=== PATIENT | female | born 1975 | race Caucasian/White ===

== ENCOUNTER 2020-10-02 13:49 | Emergency (ER) | payer OTHER, SELFPAY ==
[2020-10-02 13:50] VITALS: BP 117/92; PULSE 83; RESP 20; TEMP 36.8; O2SAT 99; BMI 29.1
--- NOTE | 2020-10-02 13:53 | HMH.EDGENADL ---
ED Disposition Clinical Impression: Tobacco use disorder, Hemoptysis Pneumonia Qualifiers: Pneumonia type: due to unspecified organism Laterality: right Lung location: middle lobe of lung Qualified Code(s): J18.9 - Pneumonia, unspecified organism Disposition: Home, Self-Care Condition on Discharge: Fair Instructions: DI for Pneumonia -- Adult Prescriptions: Amoxicillin/Potassium Clav [Augmentin 875-125 Tablet] 1 tab PO Q12H 7 Days #14 tab Transmission Status: Pending to [facility]/pharmacy #[id number] predniSONE [Prednisone 20mg Tab] 40 mg PO DAILY 5 Days #10 tab Transmission Status: Pending to [facility]/pharmacy #[id number] Azithromycin [Z-Yoav 250mg Tab] 250 mg PO DIRECTED #6 tab Transmission Status: Pending to [email or web address]/pharmacy #[id number] Referrals: Katty Carroll [Primary Care Provider] - Time of Disposition: 17:04 - Critical Care Critical Care Time: No Attestation: On , the high probability of a clinically significant, sudden or life threatening deterioration of the following system(s) required my full and direct attention, intervention and personal management. The time I documented below is in addition to time spent performing reported procedures but includes the following listed in this critical care notation. Medical Decision Making - Medical Records Medical records reviewed: Yes: I reviewed the patient's medical records. - Jeromy Inquiry Pt receiving controlled substance: No Vital Signs: 10/02/20 13:50 10/02/20 14:42 10/02/20 15:19 Temperature 98.2 F Temperature Source Oral Pulse Rate [Left Radial] 83 66 60 Respiratory Rate 20 Blood Pressure [Right Arm] 117/92 H 112/82 119/79 Blood Pressure Mean [Right Arm] 100 92 92 Blood Pressure Source [Right Arm] Automatic Cuff Automatic Cuff Automatic Cuff Blood Pressure Position [Right Arm] Sitting Sitting Sitting 02 Sat by Pulse Oximetry 99 98 98 Oxygen Delivery Method Room Air Room Air Room Air 10/02/20 16:02 Temperature Temperature Source Pulse Rate [Left Radial] 59 L Respiratory Rate Blood Pressure [Right Arm] Blood Pressure Mean [Right Arm] Blood Pressure Source [Right Arm] Automatic Cuff Blood Pressure Position [Right Arm] Sitting 02 Sat by Pulse Oximetry 96 Oxygen Delivery Method Room Air - Lab Data Lab Results 10/02/20 14:01: WBC 12.4 H, RBC 4.50, Hgb 14.0, Hct 42.0, MCV 93.2, MCH 31.1, MCHC 33.4, RDW 14.3, Plt Count 440 H, MPV 7.5, Neut % (Auto) 67.9, Lymph % (Auto) 23.1, [place] % (Auto) 5.7, Eos % (Auto) 2.8, Baso % (Auto) 0.5, Neut # (Auto) 8.4 H, Lymph # (Auto) 2.9, [place] # (Auto) 0.7, Eos # (Auto) 0.4, Baso # (Auto) 0.1 10/02/20 14:01: Sodium 138, Potassium 4.1, Chloride 102, Carbon Dioxide 28, Anion Gap 12.1, BUN 13, Creatinine 0.90, Estimated Creat Clear 101, Estimated GFR 68, Est GFR ( Amer) 83, Glucose 95, Calcium 9.6, Total Bilirubin 0.5, AST 26, ALT 16, Alkaline Phosphatase 56, Total Protein 8.4 H, Albumin 4.5, Globulin 3.9 H, Albumin/Globulin Ratio 1.2 10/02/20 14:01: D-Dimer 0.76 H 10/02/20 14:01: SARS-CoV-2 IgG Ab (Rapid) Negative, SARS-CoV-2 IgM Ab (Rapid) Negative 10/02/20 14:01: Urine Color Yellow, Urine Appearance Turbid, Urine pH 6.0, Ur Specific Char[place] >= 1.030, Urine Protein Negative, Urine Glucose (UA) Negative, Urine Ketones Negative, Urine Blood Negative, Urine Nitrate Negative, Urine Bilirubin Negative, Urine Urobilinogen 0.2, Ur Leukocyte Esterase Negative, Ur Squamous Epith Cells 10-20, Urine Bacteria Trace Result diagrams: 10/02/20 14:01 10/02/20 14:01 Orders (Tests/Meds): ED MEDICATIONS Discontinued Medications Generic Name Dose Route Start Last Admin Trade Name Freq PRN Reason Stop Dose Admin Iopamidol 70 ml 10/02/20 15:32 10/02/20 15:33 Iopamidol-370 (76%);100ml Bottle IV 10/02/20 15:33 70 ml ONCE ONE Administration Sodium Chloride 40 ml 10/02/20 15:32 10/02/20 15:33 0.9 % Sodium Chloride 50 Ml Vial IV 10/02/20 15:33 40 ml ONCE ONE Administration Sodium Chloride 10 ml
--- NOTE | 2020-10-02 13:57 | XR_ITS ---
PROCEDURE: XR CHEST 2V CLINICAL HISTORY: hemoptysis Smoker COMPARISON: No exams were available for comparison FINDINGS: The cardiomediastinal silhouette and pulmonary vascularity are within normal limits. The lungs are clear without infiltrates, suspicious nodules, or pleural effusions. Calcified granuloma is present within the lingula. No acute bony findings. IMPRESSION: No acute findings. Dictated by: Iker Martinez MD 10/02/2020 14:22 Iker Martinez MD in [place] 10/02/2020 14:22
[2020-10-02 14:21] LABS: Microscopic, Urine URINE MICROSCOPIC (MICROSCOPIC)
[2020-10-02 14:27] LABS: Basophils # 0.1 K/mm3 (0-0.2); Basophils % 0.5 % (0.1-2.0); Eosinophils # 0.4 K/mm3 (0.0-0.4); Eosinophils % 2.8 % (0.1-12.0); Lymphocytes # 2.9 K/mm3 (0.7-4.5); Lymphocytes % 23.1 % (10-50); Mean Corpuscular HGB Conc 33.4 g/dL (31.8-35.4); Mean Corpuscular Hemoglobin 31.1 pg (27.0-31.2); Mean Corpuscular Volume 93.2 fl (81-99); Mean Platelet Volume 7.5 fl (7.4-10.4); Monocytes # 0.7 K/mm3 (0.1-1.0); Monocytes % 5.7 % (1.7-9.3); Neutrophils # 8.4 K/mm3 (1.8-7.8); Neutrophils % 67.9 % (37.0-80.0); Platelet Count 440 K/mm3 (142-424); Red Cell Distribution Width 14.3 % (11.5-17.5); White Blood Count 12.4 K/mm3 (4.8-10.8)
[2020-10-02 14:32] LABS: Appearance,Urine TURBID (Clear); Bilirubin,Urine Negative (Negative); Blood, Urine Negative (Negative); Color,Urine YELLOW (Yellow); Glucose,Urine (UA) Negative (Negative); Ketones,Urine Negative (Negative); Leukocyte Esterase,Urine Negative (Negative); Nitrate,Urine Negative (Negative); Protein,Urine Negative (Negative); Specific Gravity, Urine >= 1.030 (1.005-1.030); Urobilinogen,Urine 0.2 EU/dl (0.2)
[2020-10-02 14:34] LABS: Alanine Aminotransferase 16 U/L (12-78); Albumin Level 4.5 g/dl (3.5-5.0); Albumin/Globulin Ratio 1.2 (1.1-1.8); Alkaline Phosphatase 56 U/L (38-126); Anion Gap 12.1 mEq/L (5-15); Aspartate Amino Transferase 26 U/L (14-36); Bilirubin,Total 0.5 mg/dl (0.2-1.3); Blood Urea Nitrogen 13 mg/dl (7-17); Calcium 9.6 mg/dl (8.4-10.2); Carbon Dioxide 28 mmol/L (22.0-30.0); Chloride 102 mmol/L (98-107); Creatinine Clearance Estimated 101 mL/min (50-200); Estimated Glomerular Filt Rate 68 ml/min (>60); GFR (African American) 83 ML/MIN (>60); Globulin 3.9 g/dL (1.3-3.2); Glucose 95 mg/dl (74-100); Potassium 4.1 mmoL/L (3.5-5.1); Sodium 138 mmol/L (136-145); Total Protein,Serum 8.4 g/dl (6.3-8.2)
[2020-10-02 14:39] LABS: D-Dimer 0.76 ug/mL (0.0-0.5)
[2020-10-02 14:42] VITALS: BP 112/82; PULSE 66; O2SAT 98
--- NOTE | 2020-10-02 14:45 | CT_ITS ---
PROCEDURE: CT ANGIO CHEST CLINCIAL INDICATION: hemoptysis, elevated d-dimer COMPARISON: CR XR CHEST 2V from 10/02/2020 TECHNIQUE: IV Contrast: 70ML Isovue 370 Axial images obtained with sagittal and coronal reformats. All CT scans at the facility use one or more dose reduction, viz: automated exposure control, ma/kV adjustment per patient size (including targeted exams where dose is matched to indication, i.e. head), or iterative reconstruction technique. FINDINGS: HEART AND MEDIASTINAL STRUCTURES: No evidence of pulmonary embolus or aortic aneurysm or dissection. LUNGS AND PLEURAL SPACES: Consolidation is present in the right middle lobe consistent with pneumonia. There are mild centrilobular emphysematous changes. There is evidence of old granulomatous disease. BONY STRUCTURES: Degenerative changes thoracic spine UPPER ABDOMEN: Unremarkable. ADDITIONAL FINDINGS: No other significant abnormalities. IMPRESSION: Right middle lobe pneumonia. No evidence of pulmonary embolus Mild centrilobular emphysema Dictated by: Iker Martinez MD 10/02/2020 19:54 Iker Martinez MD in [place] 10/02/2020 19:54
[2020-10-02 14:46] LABS: Coronavirus 19 IgG Antibody Negative (Negative); Coronavirus 19 IgM Antibody Negative (Negative)
[2020-10-02 14:52] LABS: Bacteria,Urine Trace /lpf
[2020-10-02 15:19] VITALS: BP 119/79; PULSE 60; O2SAT 98
--- NOTE | 2020-10-02 15:19 | PC.NURSE ---
pt going to rad
--- NOTE | 2020-10-02 15:20 | PC.NURSE ---
Pt to rad.
--- NOTE | 2020-10-02 15:37 | PC.NURSE ---
Pt returning from rad.
[2020-10-02 16:02] VITALS: PULSE 59; O2SAT 96
[2020-10-02 17:15] VITALS: BP 115/88; PULSE 88; RESP 20; TEMP 36.8; O2SAT 91
== END 2020-10-02 17:17 | disposition home or self-care (01) ==
PROVIDERS: Emergency Provider Emergency Medicine; PCP Family Medicine
DX: J18.9 Pneumonia, unspecified organism (principal); J44.9 Chronic obstructive pulmonary disease, unspecified; F17.210 Nicotine dependence, cigarettes, uncomplicated; R04.2 Hemoptysis; Z01.84 Encounter for antibody response examination
CPT/HCPCS: 71046; 71275; 80053; 81001; 85025; 85378; 86328; 87070; 87077; 87186; 87205; 99284; Q9967

== ENCOUNTER → 2021-06-11 19:18 | Outpatient (CLI) | payer OTHER, SELFPAY | PROVIDERS: Visit Provider Nurse Practitioner Family | DX: Z20.822 Contact with and (suspected) exposure to COVID-19 (principal) | CPT/HCPCS: C9803; U0003; U0005 ==

== ENCOUNTER 2021-12-17 14:52 | Emergency (ER) | payer OTHER, SELFPAY ==
[2021-12-17 14:53] VITALS: BP 116/88; PULSE 104; RESP 20; TEMP 37.2; O2SAT 99; BMI 30.9
--- NOTE | 2021-12-17 15:13 | HMH.EDUTC ---
[facility] [place] Clinical Impression: Bronchitis Sinusitis Qualifiers: Sinusitis location: unspecified location Chronicity: acute Recurrence: non-recurrent Qualified Code(s): J01.90 - Acute sinusitis, unspecified Disposition: Home, Self-Care Condition on Discharge: Good Instructions: DI for Sinusitis Additional Instructions: Drink plenty of fluids. Take tylenol or ibuprofen for pain or fever. Take the medications as directed. Follow up with your regular doctor. GO TO THE ER FOR ANY WORSENING SYMPTOMS Prescriptions: Promethazine/Dextromethorphan [Promethazine-Dm Syrup] 5 ml PO Q6HP PRN #240 ml PRN Reason: Cough Transmission Status: Pending to [facility] Benzonatate [Benzonatate 100mg cap] 100 mg PO TIDP PRN #30 cap PRN Reason: Cough Transmission Status: Pending to [facility] methylPREDNISolone [Medrol] 4 mg PO DIRECTED 6 Days #21 packet Transmission Status: Pending to [facility] Azithromycin [Z-Yoav 250mg Tab*] 250 mg PO UD DOSE PK #6 tab Transmission Status: Pending to [facility] Referrals: Rabia Núñez MD [Primary Care Provider] - Time of Disposition: 15:54 Medical Decision Making - Medical Records Medical records reviewed: No: I reviewed the patient's medical records. - Jeromy Inquiry Pt receiving controlled substance: No Vital Signs: 12/17/21 14:53 Temperature 99.0 F Temperature Source Oral Pulse Rate [Left Radial] 104 H Respiratory Rate 20 Blood Pressure [Left Arm] 116/88 Blood Pressure Mean [Left Arm] 97 Blood Pressure Source [Left Arm] Automatic Cuff Blood Pressure Position [Left Arm] Sitting 02 Sat by Pulse Oximetry 99 Oxygen Delivery Method Room Air - Lab Data Lab results reviewed: Yes: I reviewed the patient's lab results. [facility] [place] - General Stated complaint: congestion, MEJIA, sore throat, cough Time Seen by Provider: 12/17/21 15:13 Mode of Arrival: Ambulatory Source of Information: Patient Limitations: No Limitations Description of Symptoms (Recalled from Triage Doc. by RN): PT C/O SINUS INFECTION X1 WEEK - History of Present Illness Provider Complaint: She states that for the past 1 week, she has had sinus congestion, nasal drainage, cough, chest congestion, and sore throat. - Related Data Home Medications Medication Instructions Recorded Confirmed buspirone 10 mg tablet 10 mg PO tab 06/11/21 06/11/21 umeclidinium 62.5 mcg-vilanterol 1 inh INHALATION each 06/11/21 06/11/21 25 mcg/actuation powdr for inhalation Previous Rx's Medication Instructions Recorded azithromycin 250 mg tablet 250 mg PO QDAY 5 Days #6 tab 06/11/21 prednisone 20 mg tablet 20 mg PO BID #10 tab 06/11/21 albuterol sulfate 90 mcg/actuation See Rx Instructions .ROUTE 11/24/21 aerosol inhaler .COMPLEX #8.5 each Azithromycin [Z-Yoav 250mg Tab*] 250 mg PO UD DOSE PK #6 tab 12/17/21 Benzonatate [Benzonatate 100mg 100 mg PO TIDP PRN #30 cap 12/17/21 cap] Promethazine/Dextromethorphan 5 ml PO Q6HP PRN #240 ml 12/17/21 [Promethazine-Dm Syrup] methylPREDNISolone [Medrol] 4 mg PO DIRECTED 6 Days #21 12/17/21 packet Allergies Allergy/AdvReac Type Severity Reaction Status Date / Time bupropion [From Wellbutrin] AdvReac Severe mood swings Verified 06/11/21 16:07 [facility] History - Hepatitis A Screen Attestation statement:: This patient has been screened for Hepatitis A risk factors. I have reviewed the patient's past medical history: Yes Medical History: Denies:: Diabetes Mellitus Type 1, Diabetes Mellitus Type 2 - Social History Smoking Status: Current every day smoker # Packs/Day (cigarettes): 1 Alcohol Intake: current Alcohol Intake Frequency:: holidays/special occasions only Occupational Status: other ROS Obtained: Yes All systems reviewed & no additional complaints - Constitutional Constitutional: Reports as per HPI - Eyes Eyes: Denies eye discharge - ENT Ears, Nose, Mouth, and Thr
[2021-12-17 15:58] VITALS: BP 116/88; PULSE 104; RESP 20; TEMP 37.2
== END 2021-12-17 16:02 | disposition home or self-care (01) ==
PROVIDERS: Emergency Provider Nurse Practitioner Family
DX: J20.9 Acute bronchitis, unspecified (principal); J01.90 Acute sinusitis, unspecified; F17.210 Nicotine dependence, cigarettes, uncomplicated; Z79.899 Other long term (current) drug therapy
CPT/HCPCS: 99212; G0463

== ENCOUNTER 2022-03-17 11:01 | Outpatient (RCR) | payer OTHER, SELFPAY | END 2022-03-17 11:05 | disposition home or self-care (01) | LOC: OT 11:01 | PROVIDERS: Visit Provider Family Medicine | DX: M25.512 Pain in left shoulder (principal) | CPT/HCPCS: 97165 ==

== ENCOUNTER → 2022-03-20 14:17 | Outpatient (CLI) | payer OTHER, SELFPAY ==
--- NOTE | 2022-03-20 14:17 | MR_ITS ---
FINAL REPORT CLINICAL HISTORY: cervical disc disease. History cervical surgery 3years ago. left shoulder pain and left hand numbness and tingling. no injury or trauma. FINDINGS: Multiplanar MR imaging of the cervical spine was performed without contrast. There is presumed fusion of C5-C6 which obscures detail at this level. On the sagittal T2-weighted images, disc degeneration is seen at multiple levels. There is no evidence of fracture. The vertebral alignment is normal. The cervical spinal cord has an unremarkable appearance without evidence of mass, edema or syrinx. The cervicomedullary junction is normal. C2-3: There is no significant canal stenosis or neural foraminal narrowing. C3-4: There is a small central disc protrusion with uncovertebral osteophytes. There is mild left neural foraminal narrowing. C4-5: There is an annular bulge with a left paracentral disc protrusion at indents the thecal sac. There is no significant canal stenosis or neural foraminal narrowing. C5-6: There is postoperative change with probable effusion that obscures detail. There is probable moderate neural foraminal narrowing. C6-7: There is a disc osteophyte complex. There is severe right and moderate left neural foraminal narrowing. There is mild central canal stenosis with an AP thecal sac diameter of 8 mm. C7-T1: There is no significant canal stenosis or neural foraminal narrowing. IMPRESSION: Presumed changes of fusion at C5-C6. Multilevel degenerative disc disease with areas of neural foraminal narrowing and central canal stenosis. Disc protrusions at C3-C4 and C4-C5. Reviewed, Interpreted and Dictated by Marcelino Pérez III, MD Transcribed by Ton Mcgee Authenticated and [facility]
== END ==
PROVIDERS: PCP Family Medicine; Visit Provider Family Medicine
DX: M50.90 Cervical disc disorder, unspecified, unspecified cervical region (principal)
CPT/HCPCS: 72141; 76376

== ENCOUNTER 2024-02-05 14:46 | Outpatient (CLI) | payer OTHER, SELFPAY ==
[2024-02-05 18:51] LABS: Basophils # 0.1 K/mm3 (0-0.2); Basophils % 0.7 % (0.1-2.0); Eosinophils # 0.4 K/mm3 (0.0-0.4); Eosinophils % 3.5 % (0.1-12.0); Hematocrit 40.8 % (37.0-47.0); Hemoglobin 13.4 g/dL (12.2-16.2); Lymphocytes % 30.4 % (10-50); Mean Corpuscular HGB Conc 32.7 g/dL (31.8-35.4); Mean Corpuscular Hemoglobin 31.9 pg (27.0-31.2); Mean Corpuscular Volume 97.3 fl (81-99); Mean Platelet Volume 8.1 fl (7.4-10.4); Monocytes # 0.6 K/mm3 (0.1-1.0); Monocytes % 5.6 % (1.7-9.3); Neutrophils % 59.8 % (37.0-80.0); Platelet Count 349 K/mm3 (142-424); Red Cell Distribution Width 14.8 % (11.5-17.5)
[2024-02-05 19:01] LABS: Chloride 107 mmol/L (98-107); Potassium 4.4 mmoL/L (3.5-5.1); Sodium 138 mmol/L (136-145)
[2024-02-05 19:03] LABS: Alanine Aminotransferase 22 U/L (12-78); Aspartate Amino Transferase 31 U/L (14-36); Blood Urea Nitrogen 7 mg/dl (7-17); Estimated Glomerular Filt Rate 67 ml/min (>60); GFR (African American) 82 ML/MIN (>60)
[2024-02-05 19:04] LABS: Alkaline Phosphatase 69 U/L (38-126); Bilirubin,Total 0.4 mg/dl (0.2-1.3); Calcium 9.5 mg/dl (8.4-10.2); Cholesterol 266 mg/dl (140-200); Glucose 89 mg/dl (74-100); Total Protein,Serum 7.9 g/dl (6.3-8.2); Triglycerides 72 mg/dl (30-150); VLDL Cholesterol 14 mg/dL (0-40)
[2024-02-05 19:12] LABS: C-Reactive Protein 15.6 mg/L (0-4)
[2024-02-05 19:13] LABS: Chol/HDL Ratio 2.4 (1-3.5); HDL Cholesterol 112 mg/dl (40-60)
[2024-02-05 19:17] LABS: Direct LDL Cholesterol 131.43 mg/dL (100-129)
[2024-02-05 19:36] LABS: Thyroid Stimulating Hormone 1.13 uIU/mL (0.465-4.68)
[2024-02-05 19:37] LABS: Erythrocyte Sedimentation Rate 21 mm/hr (0-20)
[2024-02-05 19:54] LABS: 25-OH Vitamin D, Total 26.2 ng/mL (30-100)
[2024-02-05 21:04] LABS: Vitamin B12 637 pg/mL (239-931)
[2024-02-05 21:05] LABS: Hemoglobin A1C 5.1 % (4.0-6.0)
[2024-02-05 22:03] LABS: Anion Gap 6.4 mEq/L (5-15); Carbon Dioxide 29 mmol/L (22.0-30.0)
[2024-02-05 22:04] LABS: Albumin Level 4.2 g/dl (3.5-5.0); Albumin/Globulin Ratio 1.1 (1.1-1.8); Globulin 3.7 g/dL (1.3-3.2)
[2024-02-07 13:11] LABS: Anti-Centromere B Antibodies <0.2 AI (0.0-0.9); Anti-DNA (DS) Ab Qn 1 IU/mL (0-9); Anti-Jo-1 <0.2 AI (0.0-0.9); Anti-Smith Antibody <0.2 AI (0.0-0.9); Antichromatin Antibodies <0.2 AI (0.0-0.9); Antiscleroderma-70 Antibodies <0.2 AI (0.0-0.9); RNP Antibodies 0.2 AI (0.0-0.9); Sjogren's Anti-SS-A <0.2 AI (0.0-0.9); Sjogren's Anti-SS-B <0.2 AI (0.0-0.9)
== END 2024-02-05 23:59 | disposition home or self-care (01) ==
LOC: LAB.DROPOF 02-06 10:02
PROVIDERS: PCP Nurse Practitioner; Visit Provider Nurse Practitioner
DX: F41.8 Other specified anxiety disorders (principal); R53.83 Other fatigue; E55.9 Vitamin D deficiency, unspecified; E66.9 Obesity, unspecified; Z68.33 Body mass index [BMI] 33.0-33.9, adult; Z79.899 Other long term (current) drug therapy
CPT/HCPCS: 80053; 80061; 82306; 82607; 83036; 84443; 85025; 85651; 86140; 86225; 86235

== ENCOUNTER 2024-02-26 13:10 | Outpatient (CLI) | payer OTHER, SELFPAY ==
--- NOTE | 2024-02-26 13:11 | US_ITS ---
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 There is a 1.5 cm ovoid, hypoechoic mass. There is a similar appearing mass measuring 0.7 cm. These are nonspecific, may represent lipomas. These do not appear to be cysts. IMPRESSION: Masses as detailed above, may represent lipomas. Reviewed, Interpreted and Dictated by Marcelino Pérez III, MD Transcribed by Lucrecia Rodriguez Authenticated and [facility]
== END 2024-02-26 23:59 | disposition home or self-care (01) ==
LOC: RAD 13:11
PROVIDERS: PCP Nurse Practitioner; Visit Provider Nurse Practitioner
DX: D48.5 Neoplasm of uncertain behavior of skin (principal)
CPT/HCPCS: 76882

== ENCOUNTER 2024-06-03 12:11 | Outpatient (CLI) | payer OTHER, SELFPAY ==
[2024-06-03 19:16] LABS: Albumin Level 4.2 g/dl (3.5-5.0); Chloride 109 mmol/L (98-107); Potassium 4.2 mmoL/L (3.5-5.1); Sodium 139 mmol/L (136-145)
[2024-06-03 19:18] LABS: Blood Urea Nitrogen 7 mg/dl (7-17); Estimated Glomerular Filt Rate 77 ml/min (>60); GFR (African American) 93 ML/MIN (>60)
[2024-06-03 19:19] LABS: Alanine Aminotransferase 31 U/L (12-78); Albumin/Globulin Ratio 1.2 (1.1-1.8); Alkaline Phosphatase 67 U/L (38-126); Anion Gap 7.2 mEq/L (5-15); Aspartate Amino Transferase 43 U/L (14-36); Bilirubin,Total 0.7 mg/dl (0.2-1.3); Calcium 9.3 mg/dl (8.4-10.2); Carbon Dioxide 27 mmol/L (22.0-30.0); Globulin 3.4 g/dL (1.3-3.2); Glucose 86 mg/dl (74-100); Total Protein,Serum 7.6 g/dl (6.3-8.2)
[2024-06-03 19:23] LABS: 25-OH Vitamin D, Total 44.4 ng/mL (30-100)
[2024-06-03 20:01] LABS: Erythrocyte Sedimentation Rate 15 mm/hr (0-20)
[2024-06-03 20:07] LABS: Thyroid Stimulating Hormone 0.91 uIU/mL (0.465-4.68)
[2024-06-03 21:46] LABS: Uric Acid 3.6 mg/dl (2.5-6.2)
[2024-06-04 08:56] LABS: HIV (1&2) Antibody Rapid NONREACTIVE (NONREACTIVE)
[2024-06-05 08:38] LABS: HCV Ab Non Reactive (Non Reactive)
[2024-06-05 12:39] LABS: RA Latex Turbid. 10.4 IU/mL (<14.0)
[2024-06-05 15:25] LABS: Anti-Centromere B Antibodies <0.2 AI (0.0-0.9); Anti-DNA (DS) Ab Qn 2 IU/mL (0-9); Anti-Jo-1 <0.2 AI (0.0-0.9); Anti-Smith Antibody <0.2 AI (0.0-0.9); Antichromatin Antibodies <0.2 AI (0.0-0.9); Antiscleroderma-70 Antibodies <0.2 AI (0.0-0.9); RNP Antibodies 0.2 AI (0.0-0.9); Sjogren's Anti-SS-A <0.2 AI (0.0-0.9); Sjogren's Anti-SS-B <0.2 AI (0.0-0.9)
[2024-06-06 19:17] LABS: Antinuclear Antibodies, IFA Negative (.)
== END 2024-06-03 23:59 | disposition home or self-care (01) ==
LOC: LAB.DROPOF 06-04 12:11
PROVIDERS: PCP Nurse Practitioner; Visit Provider Nurse Practitioner
DX: Z11.59 Encounter for screening for other viral diseases (principal); Z11.4 Encounter for screening for human immunodeficiency virus [HIV]; F41.8 Other specified anxiety disorders; E55.9 Vitamin D deficiency, unspecified; I10 Essential (primary) hypertension; F17.210 Nicotine dependence, cigarettes, uncomplicated; J30.9 Allergic rhinitis, unspecified; E78.5 Hyperlipidemia, unspecified
CPT/HCPCS: 80053; 82306; 84443; 84550; 85651; 86038; 86140; 86225; 86235; 86431; 86803; 87389

== ENCOUNTER 2024-06-19 15:21 | Outpatient (CLI) | payer OTHER, SELFPAY ==
--- NOTE | 2024-06-19 15:21 | MM_ITS ---
PROCEDURE INFORMATION: Exam: MG Bilateral Screening 3D Mammography Exam date and time: 06/19/2024 3:11 PM Age: 49 years old Clinical indication: Screening examination. TECHNIQUE: Imaging protocol: Bilateral Screening tomosynthesis and 2D mammography including computer-aided detection (CAD) when performed. COMPARISON: No relevant prior studies available. FINDINGS: MAMMOGRAPHY: Breast composition: There are scattered areas of fibroglandular density. Mass: None. Architectural distortion: None. Calcifications: No suspicious calcifications. Asymmetric density: None. Skin thickening: None. Axillary adenopathy: None. IMPRESSION: No mammographic evidence of malignancy. Annual screening is recommended unless otherwise clinically indicated. ASSESSMENT: BI-RADS Category 1: Negative.
== END 2024-06-19 23:59 | disposition home or self-care (01) ==
LOC: RAD 15:21
PROVIDERS: PCP Nurse Practitioner; Visit Provider Nurse Practitioner
DX: Z12.31 Encounter for screening mammogram for malignant neoplasm of breast (principal)
CPT/HCPCS: 77063; 77067

== ENCOUNTER 2024-07-17 14:05 | Outpatient (CLI) | payer OTHER, SELFPAY ==
[2024-07-17 18:01] LABS: Chloride 109 mmol/L (98-107)
[2024-07-17 18:02] LABS: Potassium 4.1 mmoL/L (3.5-5.1); Sodium 138 mmol/L (136-145)
[2024-07-17 18:04] LABS: Blood Urea Nitrogen 8 mg/dl (7-17); Estimated Glomerular Filt Rate 59 ml/min (>60); GFR (African American) 72 ML/MIN (>60)
[2024-07-17 18:05] LABS: Alanine Aminotransferase 18 U/L (12-78); Albumin/Globulin Ratio 1.2 (1.1-1.8); Alkaline Phosphatase 65 U/L (38-126); Anion Gap 9.1 mEq/L (5-15); Aspartate Amino Transferase 27 U/L (14-36); Bilirubin,Total 0.4 mg/dl (0.2-1.3); Calcium 9.3 mg/dl (8.4-10.2); Carbon Dioxide 24 mmol/L (22.0-30.0); Globulin 3.4 g/dL (1.3-3.2); Glucose 95 mg/dl (74-100); Total Protein,Serum 7.4 g/dl (6.3-8.2)
== END 2024-07-17 23:59 | disposition home or self-care (01) ==
LOC: LAB.DROPOF 07-18 13:39
PROVIDERS: PCP Nurse Practitioner; Visit Provider Nurse Practitioner
DX: I10 Essential (primary) hypertension (principal); E78.5 Hyperlipidemia, unspecified; Z72.0 Tobacco use
CPT/HCPCS: 80053

== ENCOUNTER 2025-01-22 13:55 | Outpatient (CLI) | payer OTHER, SELFPAY ==
[2025-01-22 18:35] LABS: Creatinine,Urine Random 33 mg/dL (Not Estab.)
[2025-01-22 18:45] LABS: Microalbumin < 6.000 mg/L (0-16.7)
[2025-01-22 18:57] LABS: Hemoglobin A1C 5.1 % (4.0-6.0)
[2025-01-22 19:02] LABS: Alanine Aminotransferase 27 U/L (12-78); Albumin Level 4.4 g/dl (3.5-5.0); Albumin/Globulin Ratio 1.5 (1.1-1.8); Alkaline Phosphatase 65 U/L (38-126); Anion Gap 8.5 mEq/L (5-15); Aspartate Amino Transferase 35 U/L (14-36); Bilirubin,Total 0.4 mg/dl (0.2-1.3); Blood Urea Nitrogen 12 mg/dl (7-17); Carbon Dioxide 27 mmol/L (22.0-30.0); Chloride 105 mmol/L (98-107); Cholesterol 265 mg/dl (140-200); Estimated Glomerular Filt Rate 67 ml/min (>60); GFR (African American) 81 ML/MIN (>60); Glucose 80 mg/dl (74-100); Potassium 4.5 mmoL/L (3.5-5.1); Sodium 136 mmol/L (136-145); Total Protein,Serum 7.4 g/dl (6.3-8.2); Triglycerides 87 mg/dl (30-150); VLDL Cholesterol 17 mg/dL (0-40)
[2025-01-22 19:21] LABS: Chol/HDL Ratio 2.6 (1-3.5); HDL Cholesterol 102 mg/dl (40-60)
== END 2025-01-22 23:59 | disposition home or self-care (01) ==
LOC: LAB.DROPOF 01-23 12:35
PROVIDERS: PCP Nurse Practitioner; Visit Provider Nurse Practitioner
DX: E78.5 Hyperlipidemia, unspecified (principal); I10 Essential (primary) hypertension; E66.9 Obesity, unspecified; Z68.31 Body mass index [BMI] 31.0-31.9, adult; F17.200 Nicotine dependence, unspecified, uncomplicated
CPT/HCPCS: 80053; 80061; 82043; 82570; 83036

== ENCOUNTER 2025-04-30 14:00 | Outpatient (CLI) | payer OTHER, SELFPAY ==
[2025-04-30 20:28] LABS: Anion Gap 7.4 mEq/L (5-15); Blood Urea Nitrogen 10 mg/dl (7-17); Calcium 9.7 mg/dl (8.4-10.2); Carbon Dioxide 26 mmol/L (22.0-30.0); Chloride 108 mmol/L (98-107); Creatinine,Serum 1.20 mg/dl (0.52-1.04); Estimated Glomerular Filt Rate 48 ml/min (>60); GFR (African American) 58 ML/MIN (>60); Glucose 85 mg/dl (74-100); Potassium 4.4 mmoL/L (3.5-5.1); Sodium 137 mmol/L (136-145)
[2025-05-02 05:09] LABS: Hepatitis B Surface Antigen Negative (Negative)
== END 2025-04-30 23:59 | disposition home or self-care (01) ==
LOC: LAB.DROPOF 05-01 10:21
PROVIDERS: PCP Nurse Practitioner; Visit Provider Nurse Practitioner
DX: I10 Essential (primary) hypertension (principal); Z11.59 Encounter for screening for other viral diseases
CPT/HCPCS: 80048; 87340

== ENCOUNTER 2025-05-28 10:52 | Outpatient (CLI) | payer OTHER, SELFPAY ==
--- NOTE | 2025-05-28 11:00 | CT_ITS ---
FINAL REPORT TECHNIQUE: Thin section axial images were obtained from the lung apices to the upper abdomen by computed tomography. Reformatted images were obtained and reviewed. This study was performed with techniques to keep radiation doses al low as reasonably achievable (ALARA). Individualized dose reduction techniques using automated exposure control or adjustment of mA and/or kV according to the patient's size were employed. CLINICAL HISTORY: lung cancer screening smoker 1 ppd x 30 years COMPARISON: None FINDINGS: CHEST CT LOW DOSE 50-year-old female, current smoker, [id number]-gmty history. CTDI vol (mGy): 2.90 DLP (mGy-cm): 103.42 There is no axillary adenopathy. There is a 2.3 x 1.3 cm right suprahilar mass. Lobular hilar adenopathy is noted as well. There is right paratracheal adenopathy present, measuring up to 3.0 x 2.4 cm in size. The heart is normal in size. There is no pericardial or pleural effusion. Lung window images demonstrate a small cluster of nodules in the posterior right upper lobe best seen on images #14 and 15 of series #4, that may be inflammatory or neoplastic. The largest nodule measures 11 mm in size. Limited images of the upper abdomen are unremarkable. IMPRESSION: Lung-RADS category 4BS, the S designation for the suprahilar mass and adenopathy. Recommend PET/CT for further evaluation. Reviewed, Interpreted and Dictated by Riccardo Coelho MD Transcribed by Belinda Waldrop Authenticated and [facility]
== END 2025-05-28 23:59 | disposition home or self-care (01) ==
LOC: RAD 10:52
PROVIDERS: PCP Nurse Practitioner; Visit Provider Nurse Practitioner
DX: R91.8 Other nonspecific abnormal finding of lung field (principal); R59.0 Localized enlarged lymph nodes; Z12.2 Encounter for screening for malignant neoplasm of respiratory organs; Z87.891 Personal history of nicotine dependence
CPT/HCPCS: 71271

== ENCOUNTER → 2025-06-29 08:08 | Outpatient (CLI) | payer OTHER, SELFPAY ==
--- OUTSIDE RECORDS SUMMARY | 2025-06-24 14:00 | XMS_ITS | Encounter Summary ---
Author Organization [place] [address] Care Team Providers Care Slate Handler Name Role Phone Rodo Lowe Unavailable Rodo Reyes MD Unavailable [phone] Reason for Referral * MRI/CAT Scan (Routine) - Authorized Specialty Diagnoses / Procedures Referred By Contac t Referred To Contact Radiology Diagnoses Abnormal radiological findings in skin and subcutaneous tissue Lung mass Procedures PET CT SKULL BASE TO MID THIGH Haylie Fenton APRN [address] [address] [place] [address] Phone: tel: fax: Referral ID Status Reason Start Date Expiration Date V isits Requested Visits Authorized [id number] Authorized 06/15/2025 06/15/2026 5 5 Reason for Visit * MRI/CAT Scan (Routine) - Authorized Specialty Diagnoses / Procedures Referred By Contac balbina Referred To Contact Radiology Diagnoses Abnormal radiological findings in skin and subcutaneous tissue Lung mass Procedures PET CT SKULL BASE TO MID THIGH Haylie Fenton APRN [address] [address] [address] [place] [address] Phone: tel: fax: Referral ID Status Reason Start Date Expiration Date V isits Requested Visits Authorized [id number] Authorized 06/15/2025 06/15/2026 5 5 Encounter Details Date Type Department Care Team (Latest Contact Info) Description 06/24/2025 2:00 PM EDT - 06/24/2025 11:59 PM EDT Hospital Encounter [facility] [address] [place] [address] Haylie Fenton, SEWING DEPARTMENT SUPERVISOR [address] [place] [address] Abnormal radiological findings in skin and subcutaneous tissue; Lung mass Discharge Disposition: Home or Self Care Social History Tobacco Use Types Packs/Day Years Used Date Smoking Tobacco: Every Day Cigarettes 0.5 35.6 Started: 11/09/1989 Smokeless Tobacco: Never Alcohol Use [...] on diagnostic imaging of other specified body htekelypcc-YXJ-95-CM R91.8-Other nonspecific abnormal finding of lung bdoqs-LOD-61-CM COMPARISON: None. PROCEDURE COMMENTS: 12 mCi 18F-fluorodeoxyglucose [...] mediastinal lymphadenopathy is also present with a fraud representative upper paratracheal node measuring 2.7 x 2.4 cm (maximum SUV 11.1). A calcified left hilar node also has FDG uptake (maximum SUV 5.2). Abdomen and pelvis: No hypermetabolic lesion. Musculoskeletal: No hypermetabolic lesion. Procedure Note Colton Rodriguez MD - 06/25/[address] SKULL BASE TO MID THIGH, 06/24/2025 3:18 PM CLINICAL HISTORY: R93.89-Abnormal findings on diagnostic imaging ofother specified body ljjokrkawg-PFQ-07-CM R91.8-Other nonspecific abnormal finding of lung cwano-JQF-49-CM COMPARISON: None. PROCEDURE COMMENTS: 12 mCi 18F-fluorodeoxyglucose [...] mediastinal lymphadenopathy is also present with a fraud representative upper paratracheal node measuring 2.7 x [...] - 100 mg/dL 06/24/2025 2:13 PM EDT [facility] Sample Type Capillary 06/24/2025 2:13 PM EDT [facility] Patient Status Non-Critical Patient 06/24/2025 2:13 PM EDT [facility] Blood BLOOD SPECIMEN / Unknown 06/24/2025 2:08 PM EDT 06/24/2025 2:13 PM EDT Haylie Fenton SEWING DEPARTMENT SUPERVISOR POINT OF CARE TEST ORDERABLES Final Result [facility] [address] [place] [address] documented in this encounter Visit Diagnoses Diagnosis [...] documented as of this encounter Care Teams Slate Handler Relationship Specialty Start Date End Date Rodo Lowe Consulting Physician Orthopaedic Surgery 12/27/15 Rodo Reyes MD [phone] (work) Consulting Physician Orthopaedic Surgery 10/25/16 documented as of this encounter
--- OUTSIDE RECORDS SUMMARY | 2025-06-29 08:16 | XMS_ITS | Encounter Summary ---
Author Organization [place] [address] Care Team Providers Care District Or District Office Director Name Role Phone Katty Escobar MD Primary Care Provi brigitte Unavailable Rodo Lowe Unavailable Rodo Reyes MD Unavailable [phone] Reason for Visit * Reason Onset Date Comments Medication Refill 12/08/2017 Encounter Details Date Type Department Care Team (Late Contact Info) Description 12/08/2017 Refill [facility] [address] [place] [address] Katty Escobar MD Medication Refill Social History Tobacco Use Types Packs/Day Years Used Date Smoking Tobacco: Every Day Cigarettes 0.5 35.6 Started: 11/09/1989 Smokeless Tobacco: Never Alcohol Use Standard Drinks/Week Comments Yes 0 (1 standard drink = 0.6 oz pur e alcohol) occasionally Sexually Active Control Partners Comments Yes Male Comments No Sex and Gender Information Value Date Recorded Sex Assigned at Not on file Legal Sex Female 7:58 AM EDT Gender Identity Not on file Sexual Orientation Not on file documented as of this encounter Functional Status * Is the person deaf or does he/she have serious difficulty hearing? Answer Date of Assessment Author No 10/26/2017 3:25 PM Ana Alonzo RMA * Is the person blind or does he/she have serious difficulty seeing even when wearing glasses? Answer Date of Assessment Author No 10/26/2017 3:25 PM Ana Alonzo RMA * Does this person have serious difficulty walking or climbing stairs? Answer Date of Assessment Author No 10/26/2017 3:25 PM Ana Alonzo RMA * Does this person have difficulty dressing or bathing? Answer Date of Assessment Author No 10/26/2017 3:25 PM Ana Alonzo RMA * Because of a physical, mental or emotional condition, does this person have difficulty doing errands alone such as visiting a doctor's office or shopping? Answer Date of Assessment Author No 10/26/2017 3:25 PM Ana Alonzo RMA documented as of this encounter Mental Status * Because of a physical, mental or emotional condition, does this person have serious difficulty concentrating, remembering or making decisions? Answer Entry Date Author No 10/26/2017 3:25 PM Ana Alonzo RMA documented in this encounter Plan of Treatment Not on file documented as of this encounter Goals Goal Patient Goal Type Associated Problems Recent Progress Patient-Stated? Author Maintain a healthy diet, exercise regularly and maintain an ideal body weight General No Katty Escobar MD Stay Tobacco Free Lifestyle No Katty Escobar MD documented as of this encounter Visit Diagnoses Not on filedocumented in this encounter Care Teams District Or District Office Director Relationship Specialty Start Date End Date Katty Escobar MD PCP - General Family Medicine 11/30/14 09/21/23 Rodo Lowe Consulting Physician Orthopaedic Surgery 12/27/15 Rodo Reyes MD Consulting Physician Orthopaedic Surgery 10/25/16 documented as of this encounter
== END ==
LOC: SL 08:08
PROVIDERS: PCP Nurse Practitioner; Visit Provider Nurse Practitioner
DX: R06.83 Snoring (principal); R53.83 Other fatigue

== ENCOUNTER 2025-07-07 10:43 | Outpatient (CLI) | payer OTHER, SELFPAY ==
--- OUTSIDE RECORDS SUMMARY | 2025-06-24 14:00 | XMS_ITS | Encounter Summary ---
Author Organization [place] [address] Care Team Providers Care Network Consultant Name Role Phone Rodo Lowe Unavailable Rodo Reyes MD Unavailable [phone] Reason for Referral * MRI/CAT Scan (Routine) - Authorized Specialty Diagnoses / Procedures Referred By Contac t Referred To Contact Radiology Diagnoses Abnormal radiological findings in skin and subcutaneous tissue Lung mass Procedures PET CT SKULL BASE TO MID THIGH Haylie Fenton APRN [address] [place] [phone] Phone: tel: fax: Referral ID Status Reason Start Date Expiration Date V isits Requested Visits Authorized [id number] Authorized 06/15/2025 06/15/2026 5 5 Reason for Visit * MRI/CAT Scan (Routine) - Authorized Specialty Diagnoses / Procedures Referred By Contac balbina Referred To Contact Radiology Diagnoses Abnormal radiological findings in skin and subcutaneous tissue Lung mass Procedures PET CT SKULL BASE TO MID THIGH Haylie Fenton APRN [address] [address] [place] [address] Phone: tel: fax: Referral ID Status Reason Start Date Expiration Date V isits Requested Visits Authorized [id number] Authorized 06/15/2025 06/15/2026 5 5 Encounter Details Date Type Department Care Team (Latest Contact Info) Description 06/24/2025 2:00 PM EDT - 06/24/2025 11:59 PM EDT Hospital Encounter [facility] [address] [place] [address] Haylie Fenton, ORDER BUILDER [address] [place] [...] on diagnostic imaging of other specified body nfitsidyjq-PKK-26-CM R91.8-Other nonspecific abnormal finding of lung ajpuu-KTJ-55-CM COMPARISON: None. PROCEDURE COMMENTS: 12 mCi 18F-fluorodeoxyglucose [...] mediastinal lymphadenopathy is also present with a call center support representative upper paratracheal node measuring 2.7 x 2.4 cm (maximum SUV 11.1). A calcified left hilar node also has FDG uptake (maximum SUV 5.2). Abdomen and pelvis: No hypermetabolic lesion. Musculoskeletal: No hypermetabolic lesion. Procedure Note Colton Rodriguez MD - 06/25/[address] SKULL BASE TO MID THIGH, 06/24/2025 3:18 PM CLINICAL HISTORY: R93.89-Abnormal findings on diagnostic imaging ofother specified body cgpvkqbhoz-TND-10-CM R91.8-Other nonspecific abnormal finding of lung lniid-KMR-02-CM COMPARISON: None. PROCEDURE COMMENTS: 12 mCi 18F-fluorodeoxyglucose [...] mediastinal lymphadenopathy is also present with a call center support representative upper paratracheal node measuring 2.7 x [...] - 100 mg/dL 06/24/2025 2:13 PM EDT [facility] Sample Type Capillary 06/24/2025 2:[address] [facility] Patient Status Non-Critical Patient 06/24/2025 2:[address] [facility] Blood BLOOD SPECIMEN / Unknown 06/24/2025 2:08 PM EDT 06/24/2025 2:13 PM EDT Haylie Fenton ORDER BUILDER POINT OF CARE TEST ORDERABLES Final Result [facility] [address] [place] [address] documented in this encounter Visit Diagnoses Diagnosis [...] documented as of this encounter Care Teams Network Consultant Relationship Specialty Start Date End Date Rodo Lowe Consulting Physician Orthopaedic Surgery 12/27/15 Rodo Reyes MD [phone] (work) Consulting Physician Orthopaedic Surgery 10/25/16 documented as of this encounter
[2025-07-07 09:00] VITALS: BMI 30.7
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
--- OUTSIDE RECORDS SUMMARY | 2025-07-07 10:46 | XMS_ITS | Encounter Summary ---
Author Organization [place] [address] Care Team Providers Care Materials Handler Name Role Phone Katty Escobar MD Primary Care Provi brigitte Unavailable Rodo Lowe Unavailable Rodo Reyes MD Unavailable [phone] Reason for Visit * Reason Onset Date Comments Medication Refill 12/08/2017 Encounter Details Date Type Department Care Team (Late Contact Info) Description 12/08/2017 Refill [facility] [address] [place] [address] Katty Escobar MD Medication Refill Social [...] on filedocumented in this encounter Care Teams Materials Handler Relationship Specialty Start Date End Date Katty Escobar MD PCP - General Family Medicine 11/30/14 09/21/23 Rodo Lowe Consulting Physician Orthopaedic Surgery 12/27/15 Rodo Reyes MD Consulting Physician Orthopaedic Surgery 10/25/16 documented as of this encounter
--- NOTE | 2025-07-07 11:09 | ECG_ITS ---
APPROVED REPORT Exam: Resting ECG HR:84 bpm ECG Measurements Heart Rate 84 AXES IA 126 P 59 QRSd 88 QRS 71 QT 344 T 73 QTc 385 Conclusion SINUS RHYTHM LOW QRS VOLTAGE IN PRECORDIAL LEADS [QRS DEFLECTION < 1.0 mV IN CHEST LEADS] BORDERLINE ECG UNCONFIRMED REPORT Electronically signed by : Samuel Wade MD 07/10/2025 22:00:44
[2025-07-07 11:22] LABS: Hematocrit 35.4 % (37.0-47.0); Hemoglobin 11.6 g/dL (12.2-16.2); Immature Granulocytes % 0.2 %; Mean Corpuscular HGB Conc 32.8 g/dL (31.8-35.4); Mean Corpuscular Hemoglobin 30.4 pg (27.0-31.2); Mean Corpuscular Volume 92.9 fl (81-99); Nucleated Red Blood Cells % 0 %; Platelet Count 383 K/mm3 (142-424); Red Blood Count 3.81 M/mm3 (4.20-5.40); Red Cell Distribution Width-SD 46.5 fL; White Blood Count 8.4 K/mm3 (4.8-10.8)
[2025-07-07 11:29] LABS: Chloride 105 mmol/L (98-107); Potassium 4.1 mmoL/L (3.5-5.1); Sodium 138 mmol/L (136-145)
--- NOTE | 2025-07-07 11:30 | CT_ITS ---
FINAL REPORT TECHNIQUE: Thin section axial images were obtained from the lung apices through the upper abdomen without contrast. This study was performed with techniques to keep radiation doses as low as reasonably achievable (ALARA). Individualized dose reduction techniques using automated exposure control or adjustment of mA and/or kV according to the patient's size were employed. CLINICAL HISTORY: ION Bronch 07/10 COMPARISON: 05/28/2025 FINDINGS: There is no axillary lymphadenopathy. There has been interval increase in size of right prevascular and paratracheal lymphadenopathy.. A right prevascular lymph node measures 27 mm and was 21 mm. A right paratracheal lymph node measures 39 mm and was 24 mm. Right hilar lymphadenopathy has also increased. There is new left hilar lymphadenopathy measuring 20 mm. No pleural or pericardial effusion. A right suprahilar mass measuring 36 mm was 23 mm on the previous study. Separate nodules in the right upper lobe may also be slightly larger in size. Limited, unenhanced evaluation of the upper abdomen demonstrates a stable right adrenal nodule measuring 17 mm. This does not meet strict criteria for adenoma. Otherwise, no acute abnormality of the upper abdomen. There is no acute osseous abnormality. IMPRESSION: Interval increase in size of right suprahilar mass with worsening thoracic lymphadenopathy concerning for progression of disease. Reviewed, Interpreted and Dictated by Carolann [place] MD Transcribed by Yvonne Bowens Authenticated and [facility]
[2025-07-07 11:32] LABS: Anion Gap 10.1 mEq/L (5-15); Blood Urea Nitrogen 9 mg/dl (7-17); Calcium 9.1 mg/dl (8.4-10.2); Carbon Dioxide 27 mmol/L (22.0-30.0); Creatinine Clearance Estimated 76 mL/min (50-200); Creatinine,Serum 1.20 mg/dl (0.52-1.04); Estimated Glomerular Filt Rate 48 ml/min (>60); GFR (African American) 58 ML/MIN (>60); Glucose 80 mg/dl (74-100)
== END 2025-07-07 23:59 | disposition home or self-care (01) ==
LOC: PREOP 10:43
PROVIDERS: Nurse Anesthetist, Certified Registered; PCP Nurse Practitioner; Visit Provider Internal Medicine Pulmonary Disease
DX: Z01.810 Encounter for preprocedural cardiovascular examination (principal); Z01.812 Encounter for preprocedural laboratory examination; R91.8 Other nonspecific abnormal finding of lung field; R59.0 Localized enlarged lymph nodes; R94.31 Abnormal electrocardiogram [ECG] [EKG]
CPT/HCPCS: 71250; 80048; 85025; 93005

== ENCOUNTER 2025-07-10 06:00 | Day surgery (SDC) | payer OTHER, SELFPAY ==
[2025-07-07 12:13] VITALS: BMI 30.7
[2025-07-10] VITALS (12 sets, daily range): BP systolic 120–151; BP diastolic 78–94; PULSE 78–96; RESP 16–18; TEMP 36.1–38; O2SAT 83–100; BMI 30.7
--- NOTE | 2025-07-10 | XR_ITS ---
FINAL REPORT CLINICAL HISTORY: ION PROCEDURE COMPARISON: None FINDINGS: FLUOROSCOPY LESS THAN 1 HOUR HISTORY: Ion procedure under fluoroscopy FINDINGS: Fluoroscopic guidance was provided for Ion procedure. A single spot film was obtained. 5 minutes 58 seconds of fluoroscopy time were used. The dosage measured 8.0 mGy. IMPRESSION: As above. Reviewed, Interpreted and Dictated by Carolann [place] MD Transcribed by Belinda Waldrop Authenticated and [facility]
[2025-07-10] MEDS: LACTATED RINGERS 1000ML 1,000 ML 25 ML IV (06:34)
--- NOTE | 2025-07-10 07:14 | P.PNANES_ITS ---
[facility] Disclaimer: The information contained in this section may have been updated after the patient was seen, as this information can be updated by other users. Medical History Tobacco abuse counseling Tobacco abuse Smoking greater than 30 pack years Mediastinal lymphadenopathy Lung nodule Abnormal screening CT of chest Snoring Personal history of smoking Polyarthralgia Hyperlipidemia Allergic rhinitis Essential hypertension Left shoulder pain Chronic post-traumatic stress disorder (PTSD) Insomnia, unspecified Generalized anxiety disorder with panic attacks Persistent depressive disorder Neoplasm of uncertain behavior of skin of forearm Vitamin D deficiency Fatigue Obesity Anxiety with depression Hemoptysis Tobacco use disorder Behavioral disorder Threatening suicide Cervical disc disease Surgical History History of partial hysterectomy Hx of carpal tunnel repair Hx of neck surgery History of ankle surgery Hx of knee surgery Family History Other Cancer Diabetes Kidney disease Social History (Updated 07/10/25 @ 06:19 by Braenna Escobar RN) Smoking Status: Current every day smoker tobacco type: cigarettes packs per day: 1 alcohol intake: current alcohol intake frequency: holidays/special occasions only substance use type: denies use current occupational status: unemployed and other Travel in the last 8 weeks?: None household members: children housing: house number of children: 2 Have you lived/traveled outside US in past 30 days?: No Contact w/someone who lives/traveled outside US past 30 days?: No Exposure to someone with infectious disease in past 14 days?: No Do you have a fever (greater than 100.4 F or 38 C)?: No Have you tested positive for COVID-19?: No Exposed to someone with COVID-19 in past 14 days?: No Do you have a sore throat?: No Do you have a cough?: No Do you have any weakness?: No Are you experiencing any nausea/vomitting?: No Do you have any diarrhea?: No Are you experiencing any unusual bleeding?: No Do you have any muscle aches/pain?: No Do you have any abdominal pain?: No Are you experiencing loss of taste or smell?: No [facility] Anesthesia Checklist Patient Identification Patient Identification: Arm Band and Verbal (Name & ) Structural Data Admitted From: Home Planned Operative Procedure/s: Bronchoscopy Verified Documents: Surgical Consent NPO Status Verified Time NPO: 00:00 Chart Verification Results Verified: ECG Additional verifications Anesthesia Reactions: No Airway Assessment Mallampati Score:: Class II C-Spine Mobility Assessed: Yes TMJ Mobility Assessed: Yes Dentition: Edentulous Neurological Assessment Level of Consciousness: Awake, Alert and Appropriate Hx Seizures: No Numbness or tingling in extremities: No Anesthesia Plan Anesthesia Risk discussed: Yes Anesthesia Plan: Verified ASA Class: II Anesthesia Type: General
--- NOTE | 2025-07-10 11:03 | P.PNANES_ITS ---
[facility] Anesthesia Record Part I Anesthesia Record I Intake, IV Amount: 1,100 Hydration: Adequate Estimated blood loss (mL): 5 Urine output (mL): 0 Blood Products used (#): none Blood Pressure: 134/78 SaO2: 97 Pulse Rate: 94 Airway Patency: Patent Respiratory Rate: 16 Temperature: 97.2 F Patient is:: Drowsy and Stable Stable to PACU at:: 11:00
--- NOTE | 2025-07-10 11:03 | XR_ITS ---
FINAL REPORT CLINICAL HISTORY: post bronchoscopy COMPARISON: 07/07/2025 FINDINGS: A portable view of the chest was obtained. Cardiac and mediastinal silhouettes are within normal limits. There is a right suprahilar opacity which may have been the biopsied abnormality. There is no pleural effusion. There is no pneumothorax after bronchoscopy. IMPRESSION: Right suprahilar opacity which may have been the biopsied abnormality. Reviewed, Interpreted and Dictated by Carolann [place] MD Transcribed by Lucrecia Rodriguez Authenticated and [facility][1]
--- NOTE | 2025-07-10 11:06 | EXP.BRONCH.N ---
Procedure: Date: 07/10/25 Patient Date of :: 1975 Procedure Performed:: Navigational bronchoscopy, airway examination, bronchoalveolar lavage, trans bronchial fine-needle aspiration, trans bronchial brushing and trans bronchial biopsy of lung nodule, endobronchial biopsy and endobronchial ultrasound-guided lymph node surveillance and fine-needle aspiration of lymph node Indications:: Lung nodule and lymphadenopathy Performing Provider:: Jluis Edwards MD Referring Provider:: Dr: Haylie Fenton APRN Sedation:: General anesthesia Procedure:: Navigational bronchoscopy, airway examination, bronchoalveolar lavage, trans bronchial fine-needle aspiration, trans bronchial brushing and trans bronchial biopsy of lung nodule, endobronchial biopsy and endobronchial ultrasound-guided lymph node surveillance and fine-needle aspiration of lymph node: A clean diagnostic bronchoscopy was advanced to the ET tube and airway examination was performed. Near complete occlusion of the right upper lobe posterior segment airway noted with likely endobronchial mass. Rest of the airways appeared grossly normal, no evidence of mucoid secretions, mucous plugging active bleeding/old blood clots noted. Moderate amount of secretions were noted. Diagnostic bronchoscopy was retracted, and Robotic Ion bronchoscopy was introduced through the ET tube. Patient images were previously uploaded into the ION Plan point software. The target righhilar nodule sampling was planned, and the pathway was mapped. The nodule measured 31 mm in long axis. Following airway examination, airway registration was performed using shape sensing robot assisted bronchoscopy (SSRAB). We were 3 mm from the near edge of the nodule in the RUL. A Radial EBUS - [id number] was inserted to confirm the location which was tangential. Under fluoroscopy guidance the samples were taken. Sampling: A flexion 21 needle was used to perform FNA of the RUL Lung nodule. A total of 4 passes were made. This was followed by passes with a needle brush, 2 pass was made. Ion robotic bronchoscopy was retracted and EBUS bronchoscope was introduced for lymph node surveillance. Five passes were taken using 21 gauge needing at lymph node stations 10R, 7, 4R and borderline enlarged 10L lymph nodes. Resultant lymph node FNA sample were labelled separately for each lymph node station and were sent in CytoLyt for cytopathologic examination. EBUS was resected and diagnostic bronchoscopy was advanced endobronchial forceps biopsies were performed for the noted right upper lobe endobronchial mass. A total of 5 biopsies were performed and sent in formalin for cytopathologic examination. Bronchioloalveolar lavage performed from the right upper lobe with instillation of 10 cc normal saline with return of 5 cc bag which was sent in CytoLyt for cytopathologic examination. Findings:: Please see the procedure note Follow in pulmonary clinic in 5 to 7 days Recommendations:: Postoperative bronchoscopy instructions Complications:: No acute immediate complication Estimated blood obtained (mL): 5
--- NOTE | 2025-07-10 13:28 | EXP.ANES.II ---
[facility] Anesthesia Record Part II Anesthesia Record Part II Discharge Time: 11:30 Destination: Surgical Day Care (OP Surgery) PACU nurse assessment reviewed?: Yes Patient Condition:: Good Anesthesia Complications:: None Swallowing reflex intact?: Yes Airway Patency: Patent Cyanosis?: No Blood Pressure: 151/87 SaO2: 97 Respiratory Rate: 16 Pulse Rate: 86 Temperature: 97.2 F Mental Status: Alert & Oriented Pain level:: 0 Nausea and/or vomitting:: None Intake, IV Amount: 0 Hydration: Adequate
== END 2025-07-10 12:26 | disposition home or self-care (01) ==
PROVIDERS: PCP Nurse Practitioner; Visit Provider Internal Medicine Pulmonary Disease
PROC: (CPT 31623; principal; 2025-07-10 07:30)
DX: C34.11 Malignant neoplasm of upper lobe, right bronchus or lung (principal); R59.0 Localized enlarged lymph nodes; F17.210 Nicotine dependence, cigarettes, uncomplicated; I10 Essential (primary) hypertension; E78.5 Hyperlipidemia, unspecified; F43.12 Post-traumatic stress disorder, chronic; M25.50 Pain in unspecified joint; F41.1 Generalized anxiety disorder; F41.0 Panic disorder [episodic paroxysmal anxiety]; F34.1 Dysthymic disorder; E66.9 Obesity, unspecified; Z68.30 Body mass index [BMI] 30.0-30.9, adult; G47.00 Insomnia, unspecified; R06.83 Snoring; E55.9 Vitamin D deficiency, unspecified; Z88.8 Allergy status to other drugs, medicaments and biological substances; M50.90 Cervical disc disorder, unspecified, unspecified cervical region
CPT/HCPCS: 31623; 31624; 31625; 31627; 31629; 31653; 31654; 71045; 76000; J1100; J2003; J2250; J2371; J2405; J2704; J3010; J7120

== ENCOUNTER 2025-07-15 11:46 | Outpatient (CLI) | payer OTHER, SELFPAY ==
--- OUTSIDE RECORDS SUMMARY | 2025-06-24 14:00 | XMS_ITS | Encounter Summary ---
Author Organization [place] [address] Care Team Providers Care Sound Recordist Name Role Phone Rodo Lowe Unavailable Rodo Reyes MD Unavailable [phone] Reason for Referral * MRI/CAT Scan (Routine) - Authorized Specialty Diagnoses / Procedures Referred By Contac t Referred To Contact Radiology Diagnoses Abnormal radiological findings in skin and subcutaneous tissue Lung mass Procedures PET CT SKULL BASE TO MID THIGH Haylie Fenton APRN [address] [place] [address] Phone: tel: fax: Referral ID Status Reason Start Date Expiration Date V isits Requested Visits Authorized [id number] Authorized 06/15/2025 06/15/2026 5 5 Reason for Visit * MRI/CAT Scan (Routine) - Authorized Specialty Diagnoses / Procedures Referred By Contac balbina Referred To Contact Radiology Diagnoses Abnormal radiological findings in skin and subcutaneous tissue Lung mass Procedures PET CT SKULL BASE TO MID THIGH Haylie Fenton APRN [address] [address] [place] [address] Phone: tel: fax: Referral ID Status Reason Start Date Expiration Date V isits Requested Visits Authorized [id number] Authorized 06/15/2025 06/15/2026 5 5 Encounter Details Date Type Department Care Team (Latest Contact Info) Description 06/24/2025 2:00 PM EDT - 06/24/2025 11:59 PM EDT Hospital Encounter [facility] [place] [address] [place] [address] Haylie Fenton, DOPER OPERATOR [address] [place] [...] on diagnostic imaging of other specified body vnbbgwcidc-ERX-78-CM R91.8-Other nonspecific abnormal finding of lung yllcd-KSQ-12-CM COMPARISON: None. PROCEDURE COMMENTS: 12 mCi 18F-fluorodeoxyglucose [...] mediastinal lymphadenopathy is also present with a account representative upper paratracheal node measuring 2.7 x 2.4 cm (maximum SUV 11.1). A calcified left hilar node also has FDG uptake (maximum SUV 5.2). Abdomen and pelvis: No hypermetabolic lesion. Musculoskeletal: No hypermetabolic lesion. Procedure Note Colton Rodriguez MD - 06/25/[address] SKULL BASE TO MID THIGH, 06/24/2025 3:18 PM CLINICAL HISTORY: R93.89-Abnormal findings on diagnostic imaging ofother specified body qnzadcgfhv-BCI-48-CM R91.8-Other nonspecific abnormal finding of lung ydbst-NWN-71-CM COMPARISON: None. PROCEDURE COMMENTS: 12 mCi 18F-fluorodeoxyglucose [...] mediastinal lymphadenopathy is also present with a account representative upper paratracheal node measuring 2.7 x [...] - 100 mg/dL 06/24/2025 2:13 PM EDT [facility] Sample Type Capillary 06/24/2025 2:13 PM EDT [facility] Patient Status Non-Critical Patient 06/24/2025 2:13 PM EDT [facility] Blood BLOOD SPECIMEN / Unknown 06/24/2025 2:08 PM EDT 06/24/2025 2:13 PM EDT Haylie Fenton DOPER OPERATOR POINT OF CARE TEST ORDERABLES Final Result [facility] [address] [place] [address] documented in this encounter Visit Diagnoses Diagnosis [...] documented as of this encounter Care Teams Sound Recordist Relationship Specialty Start Date End Date Rodo Lowe Consulting Physician Orthopaedic Surgery 12/27/15 Rodo Reyes MD [phone] (work) Consulting Physician Orthopaedic Surgery 10/25/16 documented as of this encounter
[2025-07-15 12:10] LABS: Hematocrit 36.1 % (37.0-47.0); Hemoglobin 11.6 g/dL (12.2-16.2); Immature Granulocytes % 0.1 %; Mean Corpuscular HGB Conc 32.1 g/dL (31.8-35.4); Mean Corpuscular Hemoglobin 30.1 pg (27.0-31.2); Mean Corpuscular Volume 93.8 fl (81-99); Nucleated Red Blood Cells % 0 %; Platelet Count 364 K/mm3 (142-424); Red Blood Count 3.85 M/mm3 (4.20-5.40); Red Cell Distribution Width-SD 47.1 fL; White Blood Count 8.9 K/mm3 (4.8-10.8)
--- OUTSIDE RECORDS SUMMARY | 2025-07-15 12:25 | XMS_ITS | Clinical Summary ---
Author Organization [facility] Address [address] [place] [address] Phone Care Team Providers Care Police Reserves Commander Name Role Phone Rodo Lowe Unavailable Rodo Reyes MD Unavailable [phone] Allergies Active Allergy Reactions Criticality Noted Date [...] migh t be different from the original. [facility] Controlled Substance Protocol Completed: A. [...] or Functional capacity documented (EVERY VISIT) Pharmacy: [facility] Care gap audit completed by Ivania Slade [...] - 06/24/2025 11:59 PM EDT Hospital Encounter [facility] [place] [address] Haylie Fenton, DEMETRA Abnormal radiological findings in [...] RELEASE ; Surgeon: Rodo Reyes MD; Location: [facility] MAIN OR; Service: Spine CARPAL TUNNEL RELEASE 09/26/2018 Left LEFT CARPAL TUNNEL RELEASE ; Surgeon: Rodo Reyes MD; Location: [facility] MAIN OR; Service: Spine Medical History Medical [...] Virtual Colonography 2022 COVID-19 Vaccine (1 - 2024- season) 2025 Influenza Vaccine (#1) 2025 9, [...] Escobar MD Medical Devices Implanted Type Area Manager Mission Device Identifier Shelf Expiration Date Model / Serial / Lot Disc Cervical Prosthesis Standard 15x17 H5 - [id number] Implanted:Qty: 1 on 11/08/2017 by Rodo Reyes MD at [facility] N/A: Spine Cervical LDR SPINE 02/22/2022 [id number] / / [id number] Procedures Procedure Name Priority Date/Time Associated Diagnosis [...] on diagnostic imaging of other specified body [id number]-PUO-78-CM R91.8-Other nonspecific abnormal finding of lung ycmqd-TXS-59-CM COMPARISON: None. PROCEDURE COMMENTS: 12 mCi 18F-fluorodeoxyglucose [...] mediastinal lymphadenopathy is also present with a parts counter representative upper paratracheal node measuring 2.7 x 2.4 cm (maximum SUV 11.1). A calcified left hilar node also has FDG uptake (maximum SUV 5.2). Abdomen and pelvis: No hypermetabolic lesion. Musculoskeletal: No hypermetabolic lesion. Procedure Note Colton Rodriguez MD - 06/25/[address] SKULL BASE TO MID THIGH, 06/24/2025 3:18 PM CLINICAL HISTORY: R93.89-Abnormal findings on diagnostic imaging ofother specified body [id number]-KYA-88-CM R91.8-Other nonspecific abnormal finding of lung svrir-XXB-96-CM COMPARISON: None. PROCEDURE COMMENTS: 12 mCi 18F-fluorodeoxyglucose [...] mediastinal lymphadenopathy is also present with a parts counter representative upper paratracheal node measuring 2.7 x [...] GLUCOSE METER POC (06/24/2025 2:08 PM EDT) [facility] Glucose Meter POC 98 70 - 100 mg/dL 06/24/2025 2:13 PM EDT [facility] Sample Type Capillary 06/24/2025 2:13 PM EDT [facility] Patient Status Non-Critical Patient 06/24/2025 2:13 PM EDT [facility] Blood BLOOD SPECIMEN / Unknown 06/24/2025 2:08 PM EDT 06/24/2025 2:13 PM EDT Haylie Fenton APRN POINT OF CARE TEST ORDERABLES Final Result [facility] [address] [place] [address] * MM MOBILE MAMMO DIGITAL SCREEN W CAD FERNANDA (08/03/2016 2:55 PM EST) Anatomical Region Laterality Modality Breast Mammography 08/06/2016 11:5 2 AM EST Impressions 08/10/2016 4:24 PM EST : Negative ([id number]) ~ RECOMMENDATION: Routine screening mammogram in 1 [...] Procedure:MM MOBILE MAMMO DIGITAL SCREEN W CAD FERNANDA ~ Reason for exam: screening (asymptomatic). ~ MM MOBILE MAMMO DIGITAL SCREEN W CAD FERNANDA Bilateral CC and MLO view(s) were taken. No suspicious calcifications. No previous studies for comparison. ~ Katty Prater MD IMG MAMMOGRAPHY ORD ERABLES Final Result from Last 3 Months or Most Recently Relevant to Health Maintenance Insurance [employer] [facility] [id number] [id number] Advance Directives For more information, please contact: [phone] * Full Code (Latest Code Status on File) Date Activated Date Inactivated Comments 11/08/2017 7:55 PM 11/09/2017 5:43 PM Care Teams Police Reserves Commander Relationship Specialty Start Date End Date Rodo Lowe Consulting Physician Orthopaedic Surgery 12/27/15 Rodo Reyes MD Consulting Physician Orthopaedic Surgery 10/25/16
--- OUTSIDE RECORDS SUMMARY | 2025-07-15 12:25 | XMS_ITS | Encounter Summary ---
Author Organization [place] [address] Care Team Providers Care Manager Therapy Name Role Phone Katty Escobar MD Primary Care Provi brigitte Unavailable Rodo Lowe Unavailable Rodo Reyes MD Unavailable [phone] Reason for Visit * Reason Onset Date Comments Medication Refill 12/08/2017 Encounter Details Date Type Department Care Team (Late Contact Info) Description 12/08/2017 Refill [facility] [address] [place] [address] Katyt Escobar MD Medication Refill Social History Tobacco [...] on filedocumented in this encounter Care Teams Manager Therapy Relationship Specialty Start Date End Date Katty Escobar MD PCP - General Family Medicine 11/30/14 09/21/23 Rodo Lowe Consulting Physician Orthopaedic Surgery 12/27/15 Rodo Reyes MD Consulting Physician Orthopaedic Surgery 10/25/16 documented as of this encounter
[2025-07-15 12:38] LABS: Albumin Level 3.9 g/dl (3.5-5.0); Chloride 106 mmol/L (98-107); Sodium 138 mmol/L (136-145)
[2025-07-15 12:39] LABS: Potassium 4.4 mmoL/L (3.5-5.1)
[2025-07-15 12:41] LABS: Alanine Aminotransferase 18 U/L (12-78); Albumin/Globulin Ratio 1.1 (1.1-1.8); Alkaline Phosphatase 74 U/L (38-126); Anion Gap 9.4 mEq/L (5-15); Aspartate Amino Transferase 25 U/L (14-36); Bilirubin,Total 0.3 mg/dl (0.2-1.3); Blood Urea Nitrogen 8 mg/dl (7-17); Carbon Dioxide 27 mmol/L (22.0-30.0); Creatinine,Serum 1.20 mg/dl (0.52-1.04); Estimated Glomerular Filt Rate 48 ml/min (>60); GFR (African American) 58 ML/MIN (>60); Globulin 3.6 g/dL (1.3-3.2); Total Protein,Serum 7.5 g/dl (6.3-8.2)
[2025-07-15 12:42] LABS: Calcium 9.2 mg/dl (8.4-10.2); Glucose 102 mg/dl (74-100)
== END 2025-07-15 23:59 | disposition home or self-care (01) ==
LOC: LAB 11:47
PROVIDERS: PCP Nurse Practitioner; Visit Provider Internal Medicine Medical Oncology
DX: C34.90 Malignant neoplasm of unspecified part of unspecified bronchus or lung (principal)
CPT/HCPCS: 36415; 80053; 85025

== ENCOUNTER 2025-07-16 13:51 | Outpatient (CLI) | payer OTHER, SELFPAY ==
--- NOTE | 2025-07-16 13:45 | MR_ITS ---
FINAL REPORT TECHNIQUE: Multiplanar MR, without and with gadolinium enhancement CLINICAL HISTORY: new diagnosis diagnosis with small cell lung cancer 3a eval for mets 18 ml prohance FINDINGS: Diffusion sequences show no signal abnormality to indicate acute infarct. No mass, hemorrhage or edema is seen. Ventricles are normal. Major vascular flow voids are intact. There is bilateral maxillary and ethmoid sinusitis. Following contrast administration, no mass or abnormal enhancement is seen. IMPRESSION: No evidence of metastatic brain disease. Bilateral sinusitis. Reviewed, Interpreted and Dictated by Peewee Castillo MD Transcribed by Lucrecia Rodriguez Authenticated and [facility]
[2025-07-16] MEDS: GADOTERIDOL INJ 20ML SYRINGE 18 ML IV (14:40)
== END 2025-07-16 23:59 | disposition home or self-care (01) ==
LOC: RAD 13:51
PROVIDERS: PCP Nurse Practitioner; Visit Provider Internal Medicine Medical Oncology
DX: C34.90 Malignant neoplasm of unspecified part of unspecified bronchus or lung (principal); J32.0 Chronic maxillary sinusitis; J32.2 Chronic ethmoidal sinusitis
CPT/HCPCS: 70553; A9576

== ENCOUNTER 2025-07-29 13:07 | Outpatient (CLI) | payer OTHER, SELFPAY ==
--- OUTSIDE RECORDS SUMMARY | 2025-06-24 13:00 | XMS_ITS | Encounter Summary ---
Author Organization [place] [address] Care Team Providers Care Talent Development Analyst Name Role Phone Rodo Lowe Unavailable Rodo Reyes MD Unavailable [phone] Reason for Referral * MRI/CAT Scan (Routine) - Authorized Specialty Diagnoses / Procedures Referred By Contac t Referred To Contact Radiology Diagnoses Abnormal radiological findings in skin and subcutaneous tissue Lung mass Procedures PET CT SKULL BASE TO MID THIGH Haylie Fenton APRN [address] [place] [phone] Phone: tel: fax: Referral ID Status Reason Start Date Expiration Date V isits Requested Visits Authorized [id number] Authorized 06/15/2025 06/15/2026 5 5 Reason for Visit * MRI/CAT Scan (Routine) - Authorized Specialty Diagnoses / Procedures Referred By Contac balbina Referred To Contact Radiology Diagnoses Abnormal radiological findings in skin and subcutaneous tissue Lung mass Procedures PET CT SKULL BASE TO MID THIGH Haylie Fenton APRN [address] [place] [address] Phone: tel: fax: Referral ID Status Reason Start Date Expiration Date V isits Requested Visits Authorized [id number] Authorized 06/15/2025 06/15/2026 5 5 Encounter Details Date Type Department Care Team (Latest Contact Info) Description 06/24/2025 2:00 PM EDT - 06/24/2025 11:59 PM EDT Hospital Encounter [facility] [address] [place] [address] Haylie Fenton, PRACTICE OR STUDENT TEACHER [address] [place] [address] Abnormal radiological findings in skin and subcutaneous tissue; Lung mass Discharge Disposition: Home or Self Care Social History Tobacco Use Types Packs/Day Years Used Date Smoking Tobacco: Every Day Cigarettes 0.5 35.7 Started: 11/09/1989 Smokeless Tobacco: Never Alcohol Use Standard Drinks/Week Comments Yes 0 (1 standard drink = 0.6 oz pur e alcohol) manfred PHQ-2 Answer Date Recorded PHQ-2 Score 2 04/16/2020 Sexually Active Control Partners Comments Yes Surgical Male Comments No Sex and Gender Information Value Date Recorded Sex Assigned at Not on file Legal Sex Female 7:58 AM EDT Gender Identity Not on file Sexual Orientation Not on file documented as of this encounter Functional Status * Is the person deaf or does he/she have serious difficulty hearing? Answer Date of Assessment Author No 04/16/2020 11:09 AM Kraig Lambert MA * Is the person blind or does he/she have serious difficulty seeing even when wearing glasses? Answer Date of Assessment Author No 04/16/2020 11:09 AM EDT Kraig Arellano MA * Does this person have serious difficulty walking or climbing stairs? Answer Date of Assessment Author No 04/16/2020 11:09 AM Kraig Lambert MA * Does this person have difficulty dressing or bathing? Answer Date of Assessment Author No 04/16/2020 11:09 AM KERIT Kraig Arellano MA * Because of a physical, mental or emotional condition, does this person have difficulty doing errands alone such as visiting a doctor's office or shopping? Answer Date of Assessment Author No 04/16/2020 11:09 AM Kraig Lambert MA documented as of this encounter Mental Status * Because of a physical, mental or emotional condition, does this person have serious difficulty concentrating, remembering or making decisions? Answer Entry Date Author No 04/16/2020 11:09 AM EDT Kraig Arellano MA documented in this encounter Medications at Time of Discharge albuterol (VENTOLIN HFA) 90 mcg/actuation Inhl HFA Aerosol Inhaler Inhale 2 Puffs into the lungs every 4 hours as needed. for wheezing 18 Inhaler 2 12/16/2020 ANORO ELLIPTA 62.5-25 mcg/actuation Inhl Disk with DeviceIndications :Mild emphysema (HCC) INHALE 1 PUFF BY MOUTH EVERY DAY 60 Each 1 08/26/2021 busPIRone (BUSPAR) 10 mg Oral Tablet TAKE 1 TABLET BY MOUTH TWICE A DAY 60 Tablet 2 08/11/2021 Calcium Carbonate-Vitamin D3 (CALCIUM 600 + D,3,) 600 mg(1,500mg) -400 unit Oral TabletIndications :Vitamin D deficiency Take 1 Tab by mouth 2 times daily. 60 Tab 2 08/14/2019 DULoxetine (CYMBALTA) 30 mg Oral Capsule, Delayed Release(E.C.) Take 1 Cap by mouth daily. 30 Cap 1 09/23/2020 ergocalciferol (DRISDOL) 50,000 unit Oral Capsule Take 1 Cap by mouth once a week. 4 Cap 2 08/14/2019 documented as of this encounter Discharge Disposition Disposition Code Departure Means Destination Home or Self Care documented in this encounter Plan of Treatment Not on file documented as of this encounter Goals Goal Patient Goal Type Associated Problems Recent Progress Patient-Stated? Author Maintain a healthy diet, exercise regularly and maintain an ideal body weight General No Katty Escobar MD Stay Tobacco Free Lifestyle No Katty Escobar MD documented as of this encounter Procedures Procedure Name Priority Date/Time Associated Diagnosis Comments PET CT SKULL BASE TO MID THIGH Routine 06/24/2025 3:18 PM EDT Abnormal radiological findings in skin and subcutaneous tissue Lung mass GLUCOSE METER POC Routine 06/24/2025 2:0 8 PM EDT documented in this encounter Results * PET CT SKULL BASE TO MID THIGH (06/24/2025 3:18 PM EDT) Anatomical Region Laterality Modality Positron Emissio n Tomography (PET) 06/24/2025 3:18 PM EDT Impressions 06/25/2025 8:37 AM EDT 1. Hypermetabolic right upper lobe nodules with hypermetabolic right hilar and mediastinal lymphadenopathy. Malignancy and granulomatous disease are in the differential. Tissue sampling is advised if not already performed elsewhere. 2. Calcified left hilar node with FDG uptake is indeterminate. 3. No evidence of extrathoracic metastatic disease. Narrative 06/25/2025 8:[address] SKULL BASE TO MID THIGH, 06/24/2025 3:18 PM CLINICAL HISTORY: R93.89-Abnormal findings on diagnostic imaging of other specified body [id number]-LVB-99-CM R91.8-Other nonspecific abnormal finding of lung poaor-EON-12-CM COMPARISON: None. PROCEDURE COMMENTS: 12 mCi 18F-fluorodeoxyglucose (FDG) was administered I.V. Serum blood glucose at the time of the injection was 98 mg/dL. Uptake time was approximately 45 minutes. Scanning performed from the skull vertex to the mid thigh. As an integrated part of the study, noncontrast CT scanning performed for attenuation correction and localization purposes. FINDINGS: Normal distribution of physiologic background activity was present including gastrointestinal, genitourinary, cardiovascular, neurologic systems. Index activity in the right lobe of the liver was 2.8 SUV max. Head and Neck: No hypermetabolic lesion. Chest: An ill-defined nodule in the right upper lobe measuring approximately 2 x 1 cm is hypermetabolic (maximum SUV 4.9). Adjacent smaller nodules have mild uptake, including a 0.6 x 0.6 cm nodule at the inferior margin (maximum SUV 2.9). There is hypermetabolic right hilar lymphadenopathy (maximum SUV 15.1); exact size measurement is difficult on the noncontrast CT. Multifocal mediastinal lymphadenopathy is also present with a outside energy sales representatives upper paratracheal node measuring 2.7 x 2.4 cm (maximum SUV 11.1). A calcified left hilar node also has FDG uptake (maximum SUV 5.2). Abdomen and pelvis: No hypermetabolic lesion. Musculoskeletal: No hypermetabolic lesion. Procedure Note Colton Rodriguez MD - 06/25/[address] SKULL BASE TO MID THIGH, 06/24/2025 3:18 PM CLINICAL HISTORY: R93.89-Abnormal findings on diagnostic imaging ofother specified body [id number]-HLH-12-CM R91.8-Other nonspecific abnormal finding of lung txpsc-DDY-13-CM COMPARISON: None. PROCEDURE COMMENTS: 12 mCi 18F-fluorodeoxyglucose (FDG) was administeredI.V. Serum blood glucose at the time of the injection was 98 mg/dL. Uptake timewas approximately 45 minutes. Scanning performed from the skull vertex to themid thigh. As an integrated part of the study, noncontrast CT scanningperformed for attenuation correction and localization purposes. FINDINGS: Normal distribution of physiologic background activity waspresent including gastrointestinal, genitourinary, cardiovascular, neurologicsystems. Index activity in the right lobe of the liver was 2.8 SUV max. Head and Neck: No hypermetabolic lesion. Chest: An ill-defined nodule in the right upper lobe measuringapproximately 2 x 1 cm is hypermetabolic (maximum SUV 4.9). Adjacent smaller nodules havemild uptake, including a 0.6 x 0.6 cm nodule at the inferior margin (maximumSUV 2.9). There is hypermetabolic right hilar lymphadenopathy (maximum SUV15.1); exact size measurement is difficult on the noncontrast CT. Multifocal mediastinal lymphadenopathy is also present with a outside energy sales representatives upper paratracheal node measuring 2.7 x 2.4 cm (maximum SUV 11.1). A calcifiedleft hilar node also has FDG uptake (maximum SUV 5.2). Abdomen and pelvis: No hypermetabolic lesion. Musculoskeletal: No hypermetabolic lesion. IMPRESSION: 1. Hypermetabolic right upper lobe nodules with hypermetabolic righthilar and mediastinal lymphadenopathy. Malignancy and granulomatous disease are inthe differential. Tissue sampling is advised if not already performedelsewhere. 2. Calcified left hilar node with FDG uptake is indeterminate. 3. No evidence of extrathoracic metastatic disease. Haylie Fenton APRN IM PET ORDERABLES Final Resul t * GLUCOSE METER POC (06/24/2025 2:08 PM EDT) Glucose Meter POC 98 70 - 100 mg/dL 06/24/2025 2:13 PM EDT [facility] Sample Type Capillary 06/24/2025 2:13 PM EDT [facility] Patient Status Non-Critical Patient 06/24/2025 2:13 PM EDT [facility] Blood BLOOD SPECIMEN / Unknown 06/24/2025 2:08 PM EDT 06/24/2025 2:13 PM EDT Haylie Fenton PRACTICE OR STUDENT TEACHER POINT OF CARE TEST ORDERABLES Final Result [facility] [address] [place] [address] documented in this encounter Visit Diagnoses Diagnosis Abnormal radiological findings in skin and subcutaneous tissue Other nonspecific (abnormal) findings on radiological and other examinations of body structure Lung mass Swelling, mass, or lump in chest documented in this encounter Administered Medications Inactive Administered Medications - up to 1 most recent administrations Medication Order MAR Action Action Date Dose Rate Site fluorodeoxyglucose (FDG) injection 12 millicurie 12 millicurie, Intravenous, ONCE PRN, 1 dose, Starting on Sun06/24/25 at 1410, Until Sun06/24/25 at 1410, Radiography/Imaging, Radiology Procedure, Administration dose must be within 10% of the ordered dose for radiopharmaceutical medications., Radiology, Dx: 1. Lung massIndications:Lung mass Given 06/24/2025 2:10 PM EDT 12 millicuries documented in this encounter Orders Medications Ordered That Tremaine ht Not Have Been Administered Count Last Ordered Date First Ordered Date fluorodeoxyglucose (FDG) inj ection 12 millicurie 1 06/24/2025 documented in this encounter Additional Health Concerns Assessment Noted Time PHQ-9 Depression Total Score: 2 04/16/20 20 11:09 AM EDT PHQ-2 Depression Total Score: 2 04/16/20 20 11:09 AM EDT documented as of this encounter Care Teams Talent Development Analyst Relationship Specialty Start Date End Date Rodo Lowe Consulting Physician Orthopaedic Surgery 12/27/15 Rodo Reyes MD [phone] (work) Consulting Physician Orthopaedic Surgery 10/25/16 documented as of this encounter
--- NOTE | 2025-07-29 13:00 | MM_ITS ---
PROCEDURE INFORMATION: Exam: MG Bilateral Screening 3D Mammography Exam date and time: 07/29/2025 1:06 PM Age: 50 years old Clinical indication: Screening examination TECHNIQUE: Imaging protocol: Bilateral Screening tomosynthesis and 2D mammography including computer-aided detection (CAD) when performed. COMPARISON: MG MM DIG SCREENING MAMM BI W/CAD 06/19/2024 3:11 PM FINDINGS: MAMMOGRAPHY: Breast composition: The breasts are heterogeneously dense, which may obscure small masses. Mass: Questionable 0.5 cm mass in the middle third of the right central breast only well seen on the craniocaudal projection Architectural distortion: None. Calcifications: No suspicious calcifications. Asymmetric density: None. Skin thickening: None. Axillary adenopathy: None. IMPRESSION: Patient to be recalled for a spot compression view of the right breast in the craniocaudal projection, a full 90 degree lateral view of the right breast, and right breast ultrasound for further evaluation of a questionable right breast mass. ASSESSMENT: BI-RADS Category 0: Incomplete- Need Additional Imaging Evaluation
--- OUTSIDE RECORDS SUMMARY | 2025-07-29 13:21 | XMS_ITS | Clinical Summary ---
Author Organization [facility] Address [address] [place] [address] Phone Care Team Providers Care Clinical Biochemist Name Role Phone Rodo Lowe Unavailable Rodo Reyes MD Unavailable [phone] Allergies Active Allergy Reactions Criticality Noted Date [...] migh t be different from the original. [facility] Controlled Substance Protocol Completed: A. [...] or Functional capacity documented (EVERY VISIT) Pharmacy: [facility] Care gap audit completed by Ivania Slade [...] - 06/24/2025 11:59 PM EDT Hospital Encounter [facility] [place] [address] Haylie Fenton, DEMETRA Abnormal radiological findings in [...] Surgeon: Rodo Reyes MD; Location: [facility] MAIN OR; Service: Spine CARPAL TUNNEL RELEASE 09/26/2018 Left LEFT CARPAL TUNNEL RELEASE ; Surgeon: Rodo Reyes MD; Location: [facility] MAIN OR; Service: Spine Medical History [...] Escobar MD Medical Devices Implanted Type Area High Risk Ob Device Identifier Shelf Expiration Date Model / Serial / Lot Disc Cervical Prosthesis Standard 15x17 H5 - [id number] Implanted:Qty: 1 on 11/08/2017 by Rodo Reyes MD at [facility] N/A: Spine Cervical LDR SPINE 02/22/2022 [id number] / / [id number] Procedures Procedure Name Priority Date/Time Associated Diagnosis [...] on diagnostic imaging of other specified body hadlppboae-UGW-64-CM R91.8-Other nonspecific abnormal finding of lung qzmrf-EFA-18-CM COMPARISON: None. PROCEDURE COMMENTS: 12 mCi 18F-fluorodeoxyglucose [...] mediastinal lymphadenopathy is also present with a digital sales representative upper paratracheal node measuring 2.7 x 2.4 cm (maximum SUV 11.1). A calcified left hilar node also has FDG uptake (maximum SUV 5.2). Abdomen and pelvis: No hypermetabolic lesion. Musculoskeletal: No hypermetabolic lesion. Procedure Note Colton Rodriguez MD - 06/25/[address] SKULL BASE TO MID THIGH, 06/24/2025 3:18 PM CLINICAL HISTORY: R93.89-Abnormal findings on diagnostic imaging ofother specified body ceoewqqsys-CAO-12-CM R91.8-Other nonspecific abnormal finding of lung pdtfd-CQN-77-CM COMPARISON: None. PROCEDURE COMMENTS: 12 mCi 18F-fluorodeoxyglucose [...] mediastinal lymphadenopathy is also present with a digital sales representative upper paratracheal node measuring 2.7 [...] GLUCOSE METER POC (06/24/2025 2:08 PM EDT) [facility] Glucose Meter POC 98 70 - 100 mg/dL 06/24/2025 2:13 PM EDT [facility] Sample Type Capillary 06/24/2025 2:13 PM EDT [facility] Patient Status Non-Critical Patient 06/24/2025 2:13 PM EDT [facility] Blood BLOOD SPECIMEN / Unknown 06/24/2025 2:08 PM EDT 06/24/2025 2:13 PM EDT Haylie Fenton APRN POINT OF CARE TEST ORDERABLES Final Result [facility] [address] [place] [address] * MM MOBILE MAMMO DIGITAL SCREEN W CAD FERNANDA (08/03/2016 2:55 PM EST) Anatomical Region Laterality Modality Breast Mammography 08/06/2016 11:5 2 AM EST Impressions 08/10/2016 4:24 PM EST : Negative ([id number]) ~ RECOMMENDATION: Routine screening mammogram in 1 [...] Most Recently Relevant to Health Maintenance Insurance [employer] [facility] [id number] [id number] Advance Directives For more information, please contact: [phone] * Full Code (Latest Code Status on File) Date Activated Date Inactivated Comments 11/08/2017 7:55 PM 11/09/2017 5:43 PM Care Teams Clinical Biochemist Relationship Specialty Start Date End Date Rodo Lowe Consulting Physician Orthopaedic Surgery 12/27/15 Rodo Reyes MD Consulting Physician Orthopaedic Surgery 10/25/16
--- OUTSIDE RECORDS SUMMARY | 2025-07-29 13:21 | XMS_ITS | Encounter Summary ---
Author Organization [facility] [address] Care Team Providers Care Axle Inspector Name Role Phone Katty Escobar MD Primary Care Provi brigitte Unavailable Rodo Lowe Unavailable Rodo Reyes MD Unavailable Reason for Visit * Reason Onset Date Comments Medication Refill 12/08/2017 Encounter Details Date Type Department Care Team (Late Contact Info) Description 12/08/2017 Refill [facility] [address] [place] [address] Katty Escobar MD Medication Refill Social [...] on filedocumented in this encounter Care Teams Axle Inspector Relationship Specialty Start Date End Date Katty Escobar MD PCP - General Family Medicine 11/30/14 09/21/23 Rodo Lowe Consulting Physician Orthopaedic Surgery 12/27/15 Rodo Reyes MD Consulting Physician Orthopaedic Surgery 10/25/16 documented as of this encounter
== END 2025-07-29 23:59 | disposition home or self-care (01) ==
LOC: RAD 13:07
PROVIDERS: PCP Nurse Practitioner; Visit Provider Nurse Practitioner
DX: Z12.31 Encounter for screening mammogram for malignant neoplasm of breast (principal); R92.333 Mammographic heterogeneous density, bilateral breasts; R92.8 Other abnormal and inconclusive findings on diagnostic imaging of breast
CPT/HCPCS: 77063; 77067

== ENCOUNTER 2025-08-18 23:35 | Emergency (ER) | payer OTHER, SELFPAY ==
--- OUTSIDE RECORDS SUMMARY | 2025-06-24 13:00 | XMS_ITS | Encounter Summary ---
Author Organization [place] [address] Care Team Providers Care Supervisor Liquefaction Name Role Phone Rodo Lowe Unavailable Rodo Reyes MD Unavailable [phone] Reason for Referral * MRI/CAT Scan (Routine) - Authorized Specialty Diagnoses / Procedures Referred By Contac t Referred To Contact Radiology Diagnoses Abnormal radiological findings in skin and subcutaneous tissue Lung mass Procedures PET CT SKULL BASE TO MID THIGH Haylie Fenton APRN [address] [address] [place] [phone] Phone: tel: fax: Referral ID Status Reason Start Date Expiration Date V isits Requested Visits Authorized [id number] Authorized 06/15/2025 06/15/2026 5 5 Reason for Visit * MRI/CAT Scan (Routine) - Authorized Specialty Diagnoses / Procedures Referred By Contac balbina Referred To Contact Radiology Diagnoses Abnormal radiological findings in skin and subcutaneous tissue Lung mass Procedures PET CT SKULL BASE TO MID THIGH Haylie Fenton APRN [address] [address] [address] [place] [address] Phone: tel: fax: Referral ID Status Reason Start Date Expiration Date V isits Requested Visits Authorized [id number] Authorized 06/15/2025 06/15/2026 5 5 Encounter Details Date Type Department Care Team (Latest Contact Info) Description 06/24/2025 2:00 PM EDT - 06/24/2025 11:59 PM EDT Hospital Encounter [facility] [address] [place] [address] Haylie Fenton, EMPLOYMENT COACH [address] [place] [address] Abnormal radiological findings in skin and subcutaneous tissue; Lung mass Discharge Disposition: Home or Self Care Social History Tobacco Use Types Packs/Day Years Used Date Smoking Tobacco: Every Day Cigarettes 0.5 35.8 Started: 11/09/1989 Smokeless Tobacco: Never Alcohol Use [...] on diagnostic imaging of other specified body rrlgwudjqh-CDM-29-CM R91.8-Other nonspecific abnormal finding of lung vpmpr-JNR-34-CM COMPARISON: None. PROCEDURE COMMENTS: 12 mCi 18F-fluorodeoxyglucose [...] mediastinal lymphadenopathy is also present with a jewelry sales representative upper paratracheal node measuring 2.7 x 2.4 cm (maximum SUV 11.1). A calcified left hilar node also has FDG uptake (maximum SUV 5.2). Abdomen and pelvis: No hypermetabolic lesion. Musculoskeletal: No hypermetabolic lesion. Procedure Note Colton Rodriguez MD - 06/25/[address] SKULL BASE TO MID THIGH, 06/24/2025 3:18 PM CLINICAL HISTORY: R93.89-Abnormal findings on diagnostic imaging ofother specified body dpyqrhswqz-VDF-58-CM R91.8-Other nonspecific abnormal finding of lung mfgqb-YZQ-76-CM COMPARISON: None. PROCEDURE COMMENTS: 12 mCi 18F-fluorodeoxyglucose [...] mediastinal lymphadenopathy is also present with a jewelry sales representative upper paratracheal node measuring 2.7 x 2.4 [...] - 100 mg/dL 06/24/2025 2:13 PM EDT [facility] Sample Type Capillary 06/24/2025 2:13 PM EDT [facility] Patient Status Non-Critical Patient 06/24/2025 2:13 PM EDT [facility] Blood BLOOD SPECIMEN / Unknown 06/24/2025 2:08 PM EDT 06/24/2025 2:13 PM EDT Haylie Fenton EMPLOYMENT COACH POINT OF CARE TEST ORDERABLES Final Result [facility] [address] [place] [address] documented in this encounter Visit Diagnoses Diagnosis [...] documented as of this encounter Care Teams Supervisor Liquefaction Relationship Specialty Start Date End Date Rodo Lowe Consulting Physician Orthopaedic Surgery 12/27/15 Rodo Reyes MD [phone] (work) Consulting Physician Orthopaedic Surgery 10/25/16 documented as of this encounter
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
[2025-08-18 23:45] VITALS: BP 143/102; PULSE 107; RESP 16; TEMP 37; O2SAT 98; BMI 34.5
--- NOTE | 2025-08-18 23:51 | CT_ITS ---
PROCEDURE INFORMATION: Exam: CT Neck With Contrast Exam date and time: 08/19/2025 12:42 AM Age: 50 years old Clinical indication: Mass, lump, or swelling in neck and other: Swelling lt soft palate and throat; Left; Additional info: Acute L soft palate swell, HX lisinopril, lung CA TECHNIQUE: Imaging protocol: Computed tomography of the neck with contrast. Radiation optimization: All CT scans at this facility use at least one of these dose optimization techniques: automated exposure control; mA and/or kV adjustment per patient size (includes targeted exams where dose is matched to clinical indication); or iterative reconstruction. Contrast material: ISOVUE; Contrast volume: 75 ml; Contrast route: IV; COMPARISON: CT - PET CT SKULL BASE TO MID THIGH 06/24/2025 2:49 PM FINDINGS: Paranasal sinuses: Mucosal thickening of the bilateral ethmoid and maxillary sinuses. Salivary glands: Mild edema surrounding the left submandibular gland. Pharynx: There is swelling and edema of the left palatine tonsil with edema extending into the uvula. Disorganized free fluid is noted throughout the left parapharyngeal space. Larynx: There is effacement of the piriform sinus on the left due to surrounding soft tissue edema. Epiglottis is normal. Thyroid: Normal. No enlarged or calcified nodules. Trachea: Visualized trachea is unremarkable. Lungs: Partially included right upper lobe consolidations better evaluated on concurrent CTA chest. Lymph nodes: Partially included known metastatic mediastinal lymphadenopathy. Reactive appearing upper cervical lymph nodes. Bones/joints: No acute fracture. Straightening of the cervical lordosis. C5-C6 interbody fusion. Soft tissues: There is a retropharyngeal fluid collection with no apparent enhancing wall however cannot exclude a retropharyngeal abscess. IMPRESSION: 1. There is swelling and edema of the uvula and left palatine tonsil with surrounding disorganized free fluid is noted throughout the left parapharyngeal space. Additionally there is effacement of the piriform sinus on the left due to surrounding soft tissue edema. Findings may represent an acute tonsillitis/pharyngolaryngitis. No definitive underlying enhancing soft tissue mass is appreciated, however in the context of patient's known malignancy a poorly visualized metastatic lesion cannot be completely excluded. 2. There is a retropharyngeal fluid collection with no apparent enhancing wall however cannot exclude a retropharyngeal abscess.
--- OUTSIDE RECORDS SUMMARY | 2025-08-19 00:03 | XMS_ITS | Encounter Summary ---
Author Organization [place] [address] Care Team Providers Care Trust Accounts Supervisor Name Role Phone Katty Escobar MD Primary Care Provi brigitte Unavailable Rodo Lowe Unavailable Rodo Reyes MD Unavailable [phone] Reason for Visit * Reason Onset Date Comments Medication Refill 12/08/2017 Encounter Details Date Type Department Care Team (Late Contact Info) Description 12/08/2017 Refill [facility] [address] [place] [address] Katty Escobar MD Medication Refill Social [...] on filedocumented in this encounter Care Teams Trust Accounts Supervisor Relationship Specialty Start Date End Date Katty Escobar MD PCP - General Family Medicine 11/30/14 09/21/23 Rodo Lowe Consulting Physician Orthopaedic Surgery 12/27/15 Rodo Reyes MD Consulting Physician Orthopaedic Surgery 10/25/16 documented as of this encounter
--- OUTSIDE RECORDS SUMMARY | 2025-08-19 00:03 | XMS_ITS | Clinical Summary ---
Author Organization [facility] Address [address] [place] [address] Phone Care Team Providers Care Installation Engineer Name Role Phone Rodo Lowe Unavailable Rodo Reyes MD Unavailable [phone] Allergies Active Allergy Reactions Criticality Noted Date [...] migh t be different from the original. [facility] Controlled Substance Protocol Completed: A. [...] or Functional capacity documented (EVERY VISIT) Pharmacy: [facility] Care gap audit completed by Ivania [...] - 06/24/2025 11:59 PM EDT Hospital Encounter [place] [address] Haylie Fenton, DEMETRA Abnormal radiological findings in [...] RELEASE ; Surgeon: Rodo Reyes MD; Location: [facility] MAIN OR; Service: Spine CARPAL TUNNEL RELEASE 09/26/2018 Left LEFT CARPAL TUNNEL RELEASE ; Surgeon: Rodo Reyes MD; Location: [facility] MAIN OR; Service: Spine Medical [...] 0.5 35.8 Started: 11/09/1989 Smokeless Tobacco: Never Tobacco Cessation:Ready [...] Escobar MD Medical Devices Implanted Type Area Utility Repairer Device Identifier Shelf Expiration Date Model / Serial / Lot Disc Cervical Prosthesis Standard 15x17 H5 - [id number] Implanted:Qty: 1 on 11/08/2017 by Rodo Reyes MD at [facility] N/A: Spine Cervical LDR SPINE 02/22/2022 [id number] / / [id number] Procedures Procedure Name Priority Date/Time Associated Diagnosis [...] on diagnostic imaging of other specified body [id number]-CM R91.8-Other nonspecific abnormal finding of lung [id number]-CM COMPARISON: None. PROCEDURE COMMENTS: 12 mCi 18F-fluorodeoxyglucose [...] mediastinal lymphadenopathy is also present with a loan representative upper paratracheal node measuring 2.7 x 2.4 cm (maximum SUV 11.1). A calcified left hilar node also has FDG uptake (maximum SUV 5.2). Abdomen and pelvis: No hypermetabolic lesion. Musculoskeletal: No hypermetabolic lesion. Procedure Note Colton Rodriguez MD - 06/25/[address] SKULL BASE TO MID THIGH, 06/24/2025 3:18 PM CLINICAL HISTORY: R93.89-Abnormal findings on diagnostic imaging ofother specified body [id number]-80-CM R91.8-Other nonspecific abnormal finding of lung [id number]-36-CM COMPARISON: None. PROCEDURE COMMENTS: 12 mCi 18F-fluorodeoxyglucose [...] mediastinal lymphadenopathy is also present with a loan representative upper paratracheal node measuring 2.7 x [...] GLUCOSE METER POC (06/24/2025 2:08 PM EDT) [facility] Glucose Meter POC 98 70 - 100 mg/dL 06/24/2025 2:13 PM EDT [facility] Sample Type Capillary 06/24/2025 2:13 PM EDT [facility] Patient Status Non-Critical Patient 06/24/2025 2:13 PM EDT [facility] Blood BLOOD SPECIMEN / Unknown 06/24/2025 2:08 PM EDT 06/24/2025 2:13 PM EDT Haylie Fenton APRN POINT OF CARE TEST ORDERABLES Final Result [facility] [address] [place] [address] * MM MOBILE MAMMO DIGITAL SCREEN W CAD FERNANDA (08/03/2016 2:55 PM EST) Anatomical Region Laterality Modality Breast Mammography 08/06/2016 11:5 2 AM EST Impressions 08/10/2016 4:24 PM EST : Negative ([id number]) ~ RECOMMENDATION: Routine screening mammogram in 1 [...] Most Recently Relevant to Health Maintenance Insurance [employer] [facility] [id number] Advance Directives For more information, please contact: [phone] * Full Code (Latest Code Status on File) Date Activated Date Inactivated Comments 11/08/2017 7:55 PM 11/09/2017 5:43 PM Care Teams Installation Engineer Relationship Specialty Start Date End Date Rodo Lowe Consulting Physician Orthopaedic Surgery 12/27/15 Rodo Reyes MD Consulting Physician Orthopaedic Surgery 10/25/16
[2025-08-19 00:19] LABS: Hematocrit 31.7 % (37.0-47.0); Hemoglobin 10.6 g/dL (12.2-16.2); Immature Granulocytes % 0.3 %; Mean Corpuscular HGB Conc 33.4 g/dL (31.8-35.4); Mean Corpuscular Hemoglobin 30.7 pg (27.0-31.2); Mean Corpuscular Volume 91.9 fl (81-99); Nucleated Red Blood Cells % 0 %; Platelet Count 482 K/mm3 (142-424); Red Blood Count 3.45 M/mm3 (4.20-5.40); Red Cell Distribution Width-SD 43.6 fL; White Blood Count 10.2 K/mm3 (4.8-10.8)
[2025-08-19 00:25] LABS: Albumin Level 4.1 g/dl (3.5-5.0); Chloride 102 mmol/L (98-107); Potassium 3.8 mmoL/L (3.5-5.1); Sodium 138 mmol/L (136-145)
[2025-08-19 00:28] LABS: Alanine Aminotransferase 16 U/L (12-78); Alkaline Phosphatase 71 U/L (38-126); Aspartate Amino Transferase 27 U/L (14-36); Bilirubin,Total 0.3 mg/dl (0.2-1.3); Blood Urea Nitrogen 13 mg/dl (7-17); Calcium 8.9 mg/dl (8.4-10.2); Creatinine Clearance Estimated 80 mL/min (50-200); Creatinine,Serum 1.20 mg/dl (0.52-1.04); Estimated Glomerular Filt Rate 48 ml/min (>60); GFR (African American) 58 ML/MIN (>60); Glucose 95 mg/dl (74-100); Total Protein,Serum 8.0 g/dl (6.3-8.2)
[2025-08-19 00:31] VITALS: BP 128/87; PULSE 96; O2SAT 97
[2025-08-19 00:36] LABS: Albumin/Globulin Ratio 1.1 (1.1-1.8); Globulin 3.9 g/dL (1.3-3.2)
[2025-08-19 00:37] LABS: Anion Gap 14.8 mEq/L (5-15); Carbon Dioxide 25 mmol/L (22.0-30.0)
--- NOTE | 2025-08-19 00:41 | CT_ITS ---
PROCEDURE INFORMATION: Exam: CTA Chest With Contrast Exam date and time: 08/19/2025 12:50 AM Age: 50 years old Clinical indication: Condition or disease; Lung condition and disease; Cancer of the lung; Left; Unspecified; Other: Hemoptysis; Additional info: Hemoptysis, lung cancer TECHNIQUE: Imaging protocol: Computed tomographic angiography of the chest with contrast. Exam focused on the arteries. 3D rendering (Not supervised by radiologist): MIP and/or 3D reconstructed images were created by the technologist. Radiation optimization: All CT scans at this facility use at least one of these dose optimization techniques: automated exposure control; mA and/or kV adjustment per patient size (includes targeted exams where dose is matched to clinical indication); or iterative reconstruction. Contrast material: ISO 370; Contrast volume: 70 ml; Contrast route: INTRAVENOUS (IV); COMPARISON: CT CHEST - ION 07/07/2025 11:15 AM FINDINGS: Pulmonary arteries: No pulmonary embolus. Significant compression of the right upper lobe pulmonary arteries from the suprahilar mass. Enlargement of the pulmonary trunk measuring 3.1 cm. Aorta: Unremarkable. No aortic aneurysm. No aortic dissection. Lungs: Significant interval enlargement of the right suprahilar mass now measuring 7.5 x 6.1 x 4 cm (previously 3.6 x 3.4 x 3.7 cm). Interval development of right upper lobe pulmonary nodules measuring 12 x 10 mm (series 5, image 34) and 9 x 8 mm (series 5, image 38) as well as peribronchiolar consolidations and ground-glass opacities. Left upper lobe calcified granuloma. Pleural spaces: Unremarkable. No pneumothorax. No pleural effusion. Heart: Unremarkable. No cardiomegaly. No pericardial effusion. Lymph nodes: Interval enlargement of the bulky mediastinal lymphadenopathy measuring up to 3.5 cm (previously 2.5 cm, short axis) in radha station 2R. Diaphragm: Mild hiatal hernia. Bones/joints: Unremarkable. No acute fracture. Soft tissues: Unremarkable. IMPRESSION: 1. Significant interval enlargement of the right suprahilar mass. 2. Interval development of right upper lobe pulmonary nodules likely representing metastatic nodules. 3. Interval development of right upper lobe peribronchiolar consolidations and ground-glass opacities which may represent extension of the metastatic process with pulmonary hemorrhage. 4. Interval enlargement of the mediastinal lymphadenopathy.
[2025-08-19] MEDS: SODIUM CHLORIDE 0.9% 10ML SYR (RAD ONLY) 10 ML IV (00:58)
[2025-08-19] MEDS: 0.9 % SODIUM CHLORIDE 50 ML VIAL IV (00:58)
[2025-08-19] MEDS: IOPAMIDOL-370 (76%);100ML BOTTLE 100 ML IV (00:58)
[2025-08-19] MEDS: IOPAMIDOL-370 (76%);100ML BOTTLE 45 ML IV (00:58)
[2025-08-19 01:00] VITALS: BP 117/82; PULSE 91; O2SAT 95
[2025-08-19 03:25] VITALS: BP 120/87; PULSE 82; RESP 16; TEMP 36.6; O2SAT 98
== END 2025-08-19 03:25 | disposition left against medical advice (07) ==
LOC: ER 08-19 00:01
PROVIDERS: Emergency Provider Emergency Medicine; PCP Nurse Practitioner
DX: T78.3XXA Angioneurotic edema, initial encounter (principal); J18.9 Pneumonia, unspecified organism; R04.2 Hemoptysis; C34.90 Malignant neoplasm of unspecified part of unspecified bronchus or lung; F17.210 Nicotine dependence, cigarettes, uncomplicated; I10 Essential (primary) hypertension
CPT/HCPCS: 70491; 71275; 80053; 85025; 86900; 86901; 96374; 99284; 99285; J7050; Q9967

== ENCOUNTER 2025-08-21 14:35 | Outpatient (CLI) | payer OTHER, SELFPAY ==
--- OUTSIDE RECORDS SUMMARY | 2025-06-24 13:00 | XMS_ITS | Encounter Summary ---
Author Organization [place] [address] Care Team Providers Care Mobile Therapist Name Role Phone Rodo Lowe Unavailable Rodo Reyes MD Unavailable [phone] Reason for Referral * MRI/CAT Scan (Routine) - Authorized Specialty Diagnoses / Procedures Referred By Contac t Referred To Contact Radiology Diagnoses Abnormal radiological findings in skin and subcutaneous tissue Lung mass Procedures PET CT SKULL BASE TO MID THIGH Haylie Fenton APRN [address] [address] [address] [place] [phone] Phone: tel: fax: Referral ID Status Reason Start Date Expiration Date V isits Requested Visits Authorized [id number] Authorized 06/15/2025 06/15/2026 5 5 Reason for Visit * MRI/CAT Scan (Routine) - Authorized Specialty Diagnoses / Procedures Referred By Contac balbina Referred To Contact Radiology Diagnoses Abnormal radiological findings in skin and subcutaneous tissue Lung mass Procedures PET CT SKULL BASE TO MID THIGH Haylie Fenton APRN [address] [address] [address] [place] [address] Phone: tel: fax: Referral ID Status Reason Start Date Expiration Date V isits Requested Visits Authorized [id number] Authorized 06/15/2025 06/15/2026 5 5 Encounter Details Date Type Department Care Team (Latest Contact Info) Description 06/24/2025 2:00 PM EDT - 06/24/2025 11:59 PM EDT Hospital Encounter [facility] [address] [place] [address] Haylie Fenton, PASSENGER BRAKEMAN [address] [place] [...] on diagnostic imaging of other specified body agjapaskqx-WDE-44-CM R91.8-Other nonspecific abnormal finding of lung hccxn-HTZ-59-CM COMPARISON: None. PROCEDURE COMMENTS: 12 mCi 18F-fluorodeoxyglucose [...] mediastinal lymphadenopathy is also present with a public utilities sales representative upper paratracheal node measuring 2.7 x 2.4 cm (maximum SUV 11.1). A calcified left hilar node also has FDG uptake (maximum SUV 5.2). Abdomen and pelvis: No hypermetabolic lesion. Musculoskeletal: No hypermetabolic lesion. Procedure Note Colton Rodriguez MD - 06/25/[address] SKULL BASE TO MID THIGH, 06/24/2025 3:18 PM CLINICAL HISTORY: R93.89-Abnormal findings on diagnostic imaging ofother specified body dxgzhoipuf-HHN-48-CM R91.8-Other nonspecific abnormal finding of lung gcnvd-ERM-34-CM COMPARISON: None. PROCEDURE COMMENTS: 12 mCi 18F-fluorodeoxyglucose [...] mediastinal lymphadenopathy is also present with a public utilities sales representative upper paratracheal node measuring 2.7 [...] - 100 mg/dL 06/24/2025 2:13 PM EDT [facility] Sample Type Capillary 06/24/2025 2:13 PM EDT [facility] Patient Status Non-Critical Patient 06/24/2025 2:13 PM EDT [facility] Blood BLOOD SPECIMEN / Unknown 06/24/2025 2:08 PM EDT 06/24/2025 2:13 PM EDT Haylie Fenton PASSENGER BRAKEMAN POINT OF CARE TEST ORDERABLES Final Result [facility] [address] [place] [address] documented in this encounter Visit Diagnoses Diagnosis [...] documented as of this encounter Care Teams Mobile Therapist Relationship Specialty Start Date End Date Rodo Lowe Consulting Physician Orthopaedic Surgery 12/27/15 Rodo Reyes MD [phone] (work) Consulting Physician Orthopaedic Surgery 10/25/16 documented as of this encounter
--- OUTSIDE RECORDS SUMMARY | 2025-08-21 14:37 | XMS_ITS | Encounter Summary ---
Author Organization [place] [address] Care Team Providers Care Sales Vice President Name Role Phone Katty Escobar MD Primary Care Provi brigitte Unavailable Rodo Lowe Unavailable Rodo Reyes MD Unavailable [phone] Reason for Visit * Reason Onset Date Comments Medication Refill 12/08/2017 Encounter Details Date Type Department Care Team (Late Contact Info) Description 12/08/2017 Refill [facility] [address] [place] [address] Katty Escobar MD Medication Refill Social [...] on filedocumented in this encounter Care Teams Sales Vice President Relationship Specialty Start Date End Date Katty Escobar MD PCP - General Family Medicine 11/30/14 09/21/23 Rodo Lowe Consulting Physician Orthopaedic Surgery 12/27/15 Rodo Reyes MD Consulting Physician Orthopaedic Surgery 10/25/16 documented as of this encounter
--- OUTSIDE RECORDS SUMMARY | 2025-08-21 14:37 | XMS_ITS | Clinical Summary ---
Author Organization [facility] Address [address] [place] [address] Phone Care Team Providers Care Meter/Relay Craftsman Name Role Phone Rodo Lowe Unavailable Rodo Reyes MD Unavailable [phone] Allergies Active Allergy Reactions Criticality Noted Date [...] migh t be different from the original. [facility] Controlled Substance Protocol Completed: A. [...] or Functional capacity documented (EVERY VISIT) Pharmacy: [facility] Care gap audit completed by Ivania [...] - 06/24/2025 11:59 PM EDT Hospital Encounter [facility] [place] [address] Haylie Fenton, DEMETRA Abnormal radiological findings in [...] RELEASE ; Surgeon: Rodo Reyes MD; Location: [facility] MAIN OR; Service: Spine CARPAL TUNNEL RELEASE 09/26/2018 Left LEFT CARPAL TUNNEL RELEASE ; Surgeon: Rodo Reyes MD; Location: [facility] MAIN OR; Service: Spine Medical History Medical [...] Escobar MD Medical Devices Implanted Type Area Methods Examiner Device Identifier Shelf Expiration Date Model / Serial / Lot Disc Cervical Prosthesis Standard 15x17 H5 - [id number] Implanted:Qty: 1 on 11/08/2017 by Rodo Reyes MD at [facility] N/A: Spine Cervical LDR SPINE 02/22/2022 [id number] / / [id number] Procedures Procedure Name Priority Date/Time Associated Diagnosis [...] on diagnostic imaging of other specified body dekkhxswyt-KED-55-CM R91.8-Other nonspecific abnormal finding of lung qetlj-RXA-79-CM COMPARISON: None. PROCEDURE COMMENTS: 12 mCi 18F-fluorodeoxyglucose [...] mediastinal lymphadenopathy is also present with a front office representative upper paratracheal node measuring 2.7 x 2.4 cm (maximum SUV 11.1). A calcified left hilar node also has FDG uptake (maximum SUV 5.2). Abdomen and pelvis: No hypermetabolic lesion. Musculoskeletal: No hypermetabolic lesion. Procedure Note oClton Rodriguez MD - 06/25/[address] SKULL BASE TO MID THIGH, 06/24/2025 3:18 PM CLINICAL HISTORY: R93.89-Abnormal findings on diagnostic imaging ofother specified body xawkiyxxhy-XRV-69-CM R91.8-Other nonspecific abnormal finding of lung xxnjf-XJQ-78-CM COMPARISON: None. PROCEDURE COMMENTS: 12 mCi 18F-fluorodeoxyglucose [...] mediastinal lymphadenopathy is also present with a front office representative upper paratracheal node measuring 2.7 x [...] GLUCOSE METER POC (06/24/2025 2:08 PM EDT) [facility] Glucose Meter POC 98 70 - 100 mg/dL 06/24/2025 2:13 PM EDT [facility] Sample Type Capillary 06/24/2025 2:13 PM EDT [facility] Patient Status Non-Critical Patient 06/24/2025 2:13 PM EDT [facility] Blood BLOOD SPECIMEN / Unknown 06/24/2025 2:08 PM EDT 06/24/2025 2:13 PM EDT Haylie Fenton APRN POINT OF CARE TEST ORDERABLES Final Result [facility] [address] [place] [address] * MM MOBILE MAMMO DIGITAL SCREEN W CAD FERNANDA (08/03/2016 2:55 PM EST) Anatomical Region Laterality Modality Breast Mammography 08/06/2016 11:5 2 AM EST Impressions 08/10/2016 4:24 PM EST : Negative (NCL-Duqjlnxm-5) ~ RECOMMENDATION: Routine screening mammogram in 1 [...] Most Recently Relevant to Health Maintenance Insurance [employer] [facility] [place] [address] Advance Directives For more information, please contact: [phone] * Full Code (Latest Code Status on File) Date Activated Date Inactivated Comments 11/08/2017 7:55 PM 11/09/2017 5:43 PM Care Teams Meter/Relay Craftsman Relationship Specialty Start Date End Date Rodo Lowe Consulting Physician Orthopaedic Surgery 12/27/15 Rodo Reyes MD Consulting Physician Orthopaedic Surgery 10/25/16
--- NOTE | 2025-08-21 15:00 | US_ITS ---
PROCEDURE INFORMATION: Exam: US Right Breast, Complete MG Right Diagnostic Breast Tomosynthesis Exam date and time: 08/21/2025 2:40 PM Age: 50 years old Clinical indication: Callback for a mass in the right breast. TECHNIQUE: Imaging protocol: Complete ultrasound of all four quadrants of the right breast and the retroareolar regions, including ultrasound of the axilla when performed. Right Diagnostic tomosynthesis and 2D mammography including computer-aided detection (CAD) when performed. Unilateral or bilateral exam. This study was interpreted in real time. The patient received the results. COMPARISON: MG MM DIG SCREENING MAMM BI W/CAD 07/29/2025 1:06 PM FINDINGS: MAMMOGRAPHY: Breast composition: The breast is heterogeneously dense, which may obscure small masses. Breast mammogram findings: On the spot-compression views, no definite mass is seen. No suspicious distortion or suspicious calcifications. ULTRASOUND: Breast ultrasound findings: Ultrasound of the right breast is performed. There is a simple cyst at 10 o'clock, 3 cm from the nipple measuring 0.4 x 0.3 cm. There is no solid mass. No distortion or shadowing. No axillary abnormalities. IMPRESSION: 1. Benign cyst in the right breast. No suspicious findings on mammography or ultrasound. 2. Annual bilateral mammographic screening is recommended unless otherwise clinically indicated. ASSESSMENT: BI-RADS Category 2: Benign.
== END 2025-08-21 23:59 | disposition home or self-care (01) ==
LOC: RAD 14:36
PROVIDERS: PCP Nurse Practitioner; Visit Provider Nurse Practitioner
DX: N60.01 Solitary cyst of right breast (principal); R92.331 Mammographic heterogeneous density, right breast; R92.8 Other abnormal and inconclusive findings on diagnostic imaging of breast
CPT/HCPCS: 76641; 77061; 77065; G0279

== ENCOUNTER 2025-09-01 11:23 | Outpatient (CLI) | payer OTHER, SELFPAY ==
[2025-09-01] VITALS (7 sets, daily range): BP systolic 121–136; BP diastolic 77–89; PULSE 81–96; RESP 18–19; TEMP 36.6; O2SAT 100
[2025-09-01] MEDS: DEXAMETHASONE 4MG TABLET 12 MG (11:37)
[2025-09-01] MEDS: ONDANSETRON 4MG ODT 16 MG (11:37)
[2025-09-01] MEDS: APREPITANT 125MG/80MG TRIFOLD PACK 1 PACKET PO (11:38)
[2025-09-01] MEDS: 0.9 % SODIUM CHLORIDE 100 ML IV (12:21)
== END 2025-09-01 23:59 | disposition home or self-care (01) ==
PROVIDERS: PCP Nurse Practitioner; Visit Provider Internal Medicine Medical Oncology
DX: C34.90 Malignant neoplasm of unspecified part of unspecified bronchus or lung (principal); Z51.11 Encounter for antineoplastic chemotherapy
CPT/HCPCS: 96413; 96415; 96417; J7040; J7050; J8501; J8540; J9045; J9181; Q0162

== ENCOUNTER 2025-09-02 12:28 | Outpatient (CLI) | payer OTHER, SELFPAY ==
[2025-09-02 12:46] VITALS: BP 136/83; PULSE 78; RESP 18; TEMP 36.6; O2SAT 99
[2025-09-02] MEDS: DEXAMETHASONE 4MG TABLET 12 MG PO (12:46)
[2025-09-02 13:13] VITALS: BP 130/86; PULSE 96; RESP 18; O2SAT 99
[2025-09-02 13:43] VITALS: BP 131/80; PULSE 89; RESP 18; O2SAT 98
[2025-09-02 14:30] VITALS: BP 130/90; PULSE 94; RESP 18; O2SAT 99
== END 2025-09-02 23:59 | disposition home or self-care (01) ==
LOC: INF 12:29
PROVIDERS: PCP Nurse Practitioner; Visit Provider Internal Medicine Medical Oncology
DX: C34.90 Malignant neoplasm of unspecified part of unspecified bronchus or lung (principal); Z51.11 Encounter for antineoplastic chemotherapy
CPT/HCPCS: 96413; J7040; J8540; J9181

== ENCOUNTER 2025-09-03 12:42 | Outpatient (CLI) | payer OTHER, SELFPAY ==
[2025-09-03 12:48] VITALS: BP 133/79; PULSE 101; RESP 16; TEMP 36.6; O2SAT 96
[2025-09-03] MEDS: DEXAMETHASONE 4MG TABLET 12 MG PO (13:12)
[2025-09-03 13:13] VITALS: BP 122/78; PULSE 92; RESP 18; O2SAT 99
[2025-09-03] MEDS: SODIUM CHLORIDE 0.9% 10ML FLUSH SYRINGE 10 ML IV (13:13)
[2025-09-03 13:45] VITALS: BP 124/76; PULSE 91; RESP 18; O2SAT 97
[2025-09-03 14:15] VITALS: BP 129/72; PULSE 90; RESP 18; O2SAT 98
[2025-09-03 15:03] VITALS: BP 124/70; PULSE 92; RESP 18; O2SAT 98
== END 2025-09-03 23:59 | disposition home or self-care (01) ==
LOC: INF 12:43
PROVIDERS: PCP Nurse Practitioner; Visit Provider Internal Medicine Medical Oncology
DX: C34.90 Malignant neoplasm of unspecified part of unspecified bronchus or lung (principal); Z51.11 Encounter for antineoplastic chemotherapy
CPT/HCPCS: 96413; J7040; J8540; J9181

== ENCOUNTER 2025-09-07 14:38 | Outpatient (CLI) | payer OTHER, SELFPAY ==
[2025-09-07 15:50] VITALS: PULSE 109; PULSE 111
[2025-09-07] MEDS: ALBUTEROL 0.083% 2.5 MG/3 ML NEB IH (15:50)
== END 2025-09-07 23:59 | disposition home or self-care (01) ==
LOC: RT 14:39
PROVIDERS: PCP Nurse Practitioner; Visit Provider Internal Medicine Pulmonary Disease
DX: J44.9 Chronic obstructive pulmonary disease, unspecified (principal); R94.2 Abnormal results of pulmonary function studies
CPT/HCPCS: 94060; 94618; 94640; 94726; 94729

== ENCOUNTER 2025-09-21 11:07 | Outpatient (CLI) | payer OTHER, SELFPAY ==
--- OUTSIDE RECORDS SUMMARY | 2025-09-21 11:13 | XMS_ITS | Encounter Summary ---
Author Organization [place] [address] Care Team Providers Care Occupational Health Specialist Name Role Phone Katty Escobar MD Primary Care Provi brigitte Unavailable Rodo Lowe Unavailable Rodo Reyes MD Unavailable Reason for Visit * Reason Onset Date Comments Medication Refill 12/08/2017 Encounter Details Date Type Department Care Team (Late Contact Info) Description 12/08/2017 Refill [facility] [address] [place] [address] Katty Escobar MD Medication Refill Social History Tobacco Use Types Packs/Day Years Used Date Smoking Tobacco: Every Day Cigarettes 0.5 35.9 Started: 11/09/1989 Smokeless Tobacco: Never Alcohol Use [...] on filedocumented in this encounter Care Teams Occupational Health Specialist Relationship Specialty Start Date End Date Katty Escobar MD PCP - General Family Medicine 11/30/14 09/21/23 Rodo Lowe Consulting Physician Orthopaedic Surgery 12/27/15 Rodo Reyes MD Consulting Physician Orthopaedic Surgery 10/25/16 documented as of this encounter
--- OUTSIDE RECORDS SUMMARY | 2025-09-21 11:13 | XMS_ITS | Clinical Summary ---
Author Organization [facility] Address [address] [place] [address] Phone Care Team Providers Care Network Development Coordinator Name Role Phone Rodo Lowe Unavailable Rodo Reyes MD Unavailable [phone] Allergies Active Allergy Reactions Criticality Noted Date [...] migh t be different from the original. [facility] Controlled Substance Protocol Completed: A. [...] or Functional capacity documented (EVERY VISIT) Pharmacy: [facility] Care gap audit completed by Ivania Slade [...] - 06/24/2025 11:59 PM EDT Hospital Encounter [facility] [place] [address] Haylie Fenton, DEMETRA Abnormal radiological findings in [...] RELEASE ; Surgeon: Rodo Reyes MD; Location: [facility] MAIN OR; Service: Spine CARPAL TUNNEL RELEASE 09/26/2018 Left LEFT CARPAL TUNNEL RELEASE ; Surgeon: Rodo Reyes MD; Location: [facility] MAIN OR; Service: Spine Medical [...] 0.5 35.9 Started: 11/09/1989 Smokeless Tobacco: Never Tobacco Cessation:Ready [...] Escobar MD Medical Devices Implanted Type Area Forestry Foreman Device Identifier Shelf Expiration Date Model / Serial / Lot Disc Cervical Prosthesis Standard 15x17 H5 - [id number] Implanted:Qty: 1 on 11/08/2017 by Rodo Reyes MD at [facility] N/A: Spine Cervical LDR SPINE 02/22/2022 [id number] / / [id number] Procedures Procedure Name Priority Date/Time Associated Diagnosis [...] on diagnostic imaging of other specified body mswzctgnjj-MTT-82-CM R91.8-Other nonspecific abnormal finding of lung rrldo-LWO-42-CM COMPARISON: None. PROCEDURE COMMENTS: 12 mCi 18F-fluorodeoxyglucose [...] mediastinal lymphadenopathy is also present with a guest experience representative upper paratracheal node measuring 2.7 x 2.4 cm (maximum SUV 11.1). A calcified left hilar node also has FDG uptake (maximum SUV 5.2). Abdomen and pelvis: No hypermetabolic lesion. Musculoskeletal: No hypermetabolic lesion. Procedure Note Colton Rodriguez MD - 06/25/[address] SKULL BASE TO MID THIGH, 06/24/2025 3:18 PM CLINICAL HISTORY: R93.89-Abnormal findings on diagnostic imaging ofother specified body jstrmusbre-NPS-38-CM R91.8-Other nonspecific abnormal finding of lung oenip-APD-74-CM COMPARISON: None. PROCEDURE COMMENTS: 12 mCi 18F-fluorodeoxyglucose [...] mediastinal lymphadenopathy is also present with a guest experience representative upper paratracheal node measuring 2.7 x [...] GLUCOSE METER POC (06/24/2025 2:08 PM EDT) [facility] Glucose Meter POC 98 70 - 100 mg/dL 06/24/2025 2:13 PM EDT [facility] Sample Type Capillary 06/24/2025 2:13 PM EDT [facility] Patient Status Non-Critical Patient 06/24/2025 2:13 PM EDT [facility] Blood BLOOD SPECIMEN / Unknown 06/24/2025 2:08 PM EDT 06/24/2025 2:13 PM EDT Haylie Fenton APRN POINT OF CARE TEST ORDERABLES Final Result [facility] [address] [place] [address] * MM MOBILE MAMMO DIGITAL SCREEN W CAD FERNANDA (08/03/2016 2:55 PM EST) Anatomical Region Laterality Modality Breast Mammography 08/06/2016 11:5 2 AM EST Impressions 08/10/2016 4:24 PM EST : Negative (AIF-Pajazcqd-6) ~ RECOMMENDATION: Routine screening mammogram in 1 [...] Most Recently Relevant to Health Maintenance Insurance [employer] [facility] [address] [address] Advance Directives For more information, please contact: [phone] * Full Code (Latest Code Status on File) Date Activated Date Inactivated Comments 11/08/2017 7:55 PM 11/09/2017 5:43 PM Care Teams Network Development Coordinator Relationship Specialty Start Date End Date Rodo Lowe Consulting Physician Orthopaedic Surgery 12/27/15 Rodo Reyes MD Consulting Physician Orthopaedic Surgery 10/25/16
[2025-09-21 11:19] VITALS: BMI 34.5
[2025-09-21 11:31] LABS: Hematocrit 31.1 % (37.0-47.0); Hemoglobin 10.4 g/dL (12.2-16.2); Immature Granulocytes % 1.3 %; Mean Corpuscular HGB Conc 33.4 g/dL (31.8-35.4); Mean Corpuscular Hemoglobin 30.8 pg (27.0-31.2); Mean Corpuscular Volume 92.0 fl (81-99); Nucleated Red Blood Cells % 0 %; Platelet Count 400 K/mm3 (142-424); Red Blood Count 3.38 M/mm3 (4.20-5.40); Red Cell Distribution Width-SD 48.9 fL; White Blood Count 6.1 K/mm3 (4.8-10.8)
[2025-09-21 11:58] LABS: Albumin Level 4.0 g/dl (3.5-5.0); Chloride 109 mmol/L (98-107); Potassium 3.8 mmoL/L (3.5-5.1); Sodium 139 mmol/L (136-145)
[2025-09-21 12:00] LABS: Blood Urea Nitrogen 8 mg/dl (7-17); Creatinine Clearance Estimated 96 mL/min (50-200); Creatinine,Serum 1.00 mg/dl (0.52-1.04); Estimated Glomerular Filt Rate 59 ml/min (>60); GFR (African American) 72 ML/MIN (>60)
[2025-09-21 12:01] LABS: Alanine Aminotransferase 19 U/L (12-78); Albumin/Globulin Ratio 1.1 (1.1-1.8); Alkaline Phosphatase 68 U/L (38-126); Anion Gap 12.8 mEq/L (5-15); Aspartate Amino Transferase 32 U/L (14-36); Bilirubin,Total 0.3 mg/dl (0.2-1.3); Calcium 9.5 mg/dl (8.4-10.2); Carbon Dioxide 21 mmol/L (22.0-30.0); Globulin 3.6 g/dL (1.3-3.2); Glucose 97 mg/dl (74-100); Total Protein,Serum 7.6 g/dl (6.3-8.2)
[2025-09-21] MEDS: ONDANSETRON 4MG ODT 16 MG (12:07)
[2025-09-21] MEDS: DEXAMETHASONE 4MG TABLET 12 MG (12:08)
[2025-09-21] MEDS: APREPITANT 125MG/80MG TRIFOLD PACK 1 PACKET PO (12:15)
[2025-09-21 12:40] VITALS: BP 124/79; PULSE 94; RESP 18; O2SAT 100
[2025-09-21] MEDS: SODIUM CHLORIDE 0.9% 100ML BAG 100 ML IV (12:43)
[2025-09-21 13:15] VITALS: BP 120/75; PULSE 88; RESP 18; O2SAT 100
[2025-09-21 14:19] VITALS: BP 143/80; PULSE 89; RESP 18; O2SAT 98
== END 2025-09-21 23:59 | disposition home or self-care (01) ==
PROVIDERS: PCP Nurse Practitioner; Visit Provider Internal Medicine Medical Oncology
DX: C34.90 Malignant neoplasm of unspecified part of unspecified bronchus or lung (principal); Z51.11 Encounter for antineoplastic chemotherapy
CPT/HCPCS: 80053; 85025; 96413; 96415; 96417; J7040; J7050; J8540; J9045; J9181; Q0162

== ENCOUNTER 2025-09-22 10:24 | Outpatient (CLI) | payer OTHER, SELFPAY ==
[2025-09-22] MEDS: DEXAMETHASONE 4MG TABLET 12 MG PO (10:29)
--- OUTSIDE RECORDS SUMMARY | 2025-09-22 10:49 | XMS_ITS | Clinical Summary ---
Author Organization [facility] Address [address] [place] [address] Phone Care Team Providers Care Steam Tank Operator Name Role Phone Rodo Lowe Unavailable Rodo Reyes MD Unavailable [phone] Allergies Active Allergy Reactions Criticality Noted Date [...] migh t be different from the original. [facility] Controlled Substance Protocol Completed: A. [...] - 06/24/2025 11:59 PM EDT Hospital Encounter [facility] [place] [address] Haylie Fenton, DEMETRA Abnormal radiological findings in [...] RELEASE ; Surgeon: Rodo Reyes MD; Location: [facility] MAIN OR; Service: Spine CARPAL TUNNEL RELEASE 09/26/2018 Left LEFT CARPAL TUNNEL RELEASE ; Surgeon: Rodo Reyes MD; Location: [facility] MAIN OR; Service: Spine Medical History [...] drink = 0.6 oz pur e alcohol) manferd PHQ-2 Answer Date Recorded PHQ-2 Score 2 [...] Escobar MD Medical Devices Implanted Type Area Religious Education Teacher Device Identifier Shelf Expiration Date Model / Serial / Lot Disc Cervical Prosthesis Standard 15x17 H5 - [id number] Implanted:Qty: 1 on 11/08/2017 by Rodo Reyes MD at [facility] N/A: Spine Cervical LDR SPINE 02/22/2022 [id number] / / [id number] Procedures Procedure Name Priority Date/Time Associated Diagnosis [...] on diagnostic imaging of other specified body oolsqgalmm-HZR-98-CM R91.8-Other nonspecific abnormal finding of lung bbarh-SRT-41-CM COMPARISON: None. PROCEDURE COMMENTS: 12 mCi 18F-fluorodeoxyglucose [...] mediastinal lymphadenopathy is also present with a agricultural sales representative upper paratracheal node measuring 2.7 x 2.4 cm (maximum SUV 11.1). A calcified left hilar node also has FDG uptake (maximum SUV 5.2). Abdomen and pelvis: No hypermetabolic lesion. Musculoskeletal: No hypermetabolic lesion. Procedure Note Colton Rodriguez MD - 06/25/[address] SKULL BASE TO MID THIGH, 06/24/2025 3:18 PM CLINICAL HISTORY: R93.89-Abnormal findings on diagnostic imaging ofother specified body lliqwgxtdk-JAX-93-CM R91.8-Other nonspecific abnormal finding of lung zbmxr-RUX-98-CM COMPARISON: None. PROCEDURE COMMENTS: 12 mCi 18F-fluorodeoxyglucose [...] mediastinal lymphadenopathy is also present with a agricultural sales representative upper paratracheal node measuring 2.7 [...] GLUCOSE METER POC (06/24/2025 2:08 PM EDT) [facility] Glucose Meter POC 98 70 - 100 mg/dL 06/24/2025 2:13 PM EDT [facility] Sample Type Capillary 06/24/2025 2:13 PM EDT [facility] Patient Status Non-Critical Patient 06/24/2025 2:13 PM EDT [facility] Blood BLOOD SPECIMEN / Unknown 06/24/2025 2:08 PM EDT 06/24/2025 2:13 PM EDT Haylie Fenton APRN POINT OF CARE TEST ORDERABLES Final Result [facility] [address] [place] [address] * MM MOBILE MAMMO DIGITAL SCREEN W CAD FERNANDA (08/03/2016 2:55 PM EST) Anatomical Region Laterality Modality Breast Mammography 08/06/2016 11:5 2 AM EST Impressions 08/10/2016 4:24 PM EST : Negative (KBY-Ifdewxum-5) ~ RECOMMENDATION: Routine screening mammogram in 1 [...] Most Recently Relevant to Health Maintenance Insurance [employer] [facility] [address] [address] Advance Directives For more information, please contact: [phone] * Full Code (Latest Code Status on File) Date Activated Date Inactivated Comments 11/08/2017 7:55 PM 11/09/2017 5:43 PM Care Teams Steam Tank Operator Relationship Specialty Start Date End Date Rodo Lowe Consulting Physician Orthopaedic Surgery 12/27/15 Rodo Reyes MD Consulting Physician Orthopaedic Surgery 10/25/16
--- OUTSIDE RECORDS SUMMARY | 2025-09-22 10:49 | XMS_ITS | Encounter Summary ---
Author Organization [place] [address] Care Team Providers Care Pilot Plant Operator Name Role Phone Katty Escobar MD Primary Care Provi brigitte Unavailable Rodo Lowe Unavailable Rodo Reyes MD Unavailable [phone] Reason for Visit * Reason Onset Date Comments Medication Refill 12/08/2017 Encounter Details Date Type Department Care Team (Late Contact Info) Description 12/08/2017 Refill [facility] [address] [place] [address] Katty Escobar MD Medication Refill Social [...] on filedocumented in this encounter Care Teams Pilot Plant Operator Relationship Specialty Start Date End Date Katty Escobar MD PCP - General Family Medicine 11/30/14 09/21/23 Rodo Lowe Consulting Physician Orthopaedic Surgery 12/27/15 Rodo Reyes MD Consulting Physician Orthopaedic Surgery 10/25/16 documented as of this encounter
[2025-09-22 11:07] VITALS: BP 147/72; PULSE 102; RESP 20; O2SAT 100
[2025-09-22 11:40] VITALS: BP 154/73; PULSE 100
[2025-09-22 12:10] VITALS: BP 155/76; PULSE 102
== END 2025-09-22 23:59 | disposition home or self-care (01) ==
LOC: INF 10:25
PROVIDERS: PCP Nurse Practitioner; Visit Provider Internal Medicine Medical Oncology
DX: C34.90 Malignant neoplasm of unspecified part of unspecified bronchus or lung (principal); Z51.11 Encounter for antineoplastic chemotherapy
CPT/HCPCS: 96413; J7040; J8540; J9181

== ENCOUNTER 2025-09-23 12:12 | Outpatient (CLI) | payer OTHER, SELFPAY ==
--- OUTSIDE RECORDS SUMMARY | 2025-09-23 12:15 | XMS_ITS | Clinical Summary ---
Author Organization [facility] Address [address] [place] [address] Phone Care Team Providers Care Ocean Fishing Guide Name Role Phone Rodo Lowe Unavailable Rodo Reyes MD Unavailable [phone] Allergies Active Allergy Reactions Criticality Noted Date [...] migh t be different from the original. [facility] Controlled Substance Protocol Completed: A. [...] or Functional capacity documented (EVERY VISIT) Pharmacy: [facility] Care gap audit completed by Ivania [...] - 06/24/2025 11:59 PM EDT Hospital Encounter [facility] [place] [address] Haylie Fenton, DEMETRA Abnormal radiological findings in [...] ; Surgeon: Rodo Reyes MD; Location: [facility] OR; Service: Spine CARPAL TUNNEL RELEASE 09/26/2018 Left LEFT CARPAL TUNNEL RELEASE ; Surgeon: Rodo Reyes MD; Location: [facility] MA[facility] OR; Service: Spine Medical History [...] Escobar MD Medical Devices Implanted Type Area Crayon Sorting Machine Feeder Device Identifier Shelf Expiration Date Model / Serial / Lot Disc Cervical Prosthesis Standard 15x17 H5 - [id number] Implanted:Qty: 1 on 11/08/2017 by Rodo Reyes MD at [facility] N/A: Spine Cervical LDR SPINE 02/22/2022 [id number] / / [id number] Procedures Procedure Name Priority Date/Time Associated Diagnosis [...] on diagnostic imaging of other specified body bfqttcpkrl-EUE-77-CM R91.8-Other nonspecific abnormal finding of lung hehfw-DCK-06-CM COMPARISON: None. PROCEDURE COMMENTS: 12 mCi 18F-fluorodeoxyglucose [...] mediastinal lymphadenopathy is also present with a employee relations representative upper paratracheal node measuring 2.7 x 2.4 cm (maximum SUV 11.1). A calcified left hilar node also has FDG uptake (maximum SUV 5.2). Abdomen and pelvis: No hypermetabolic lesion. Musculoskeletal: No hypermetabolic lesion. Procedure Note Colton Rodriguez MD - 06/25/[address] SKULL BASE TO MID THIGH, 06/24/2025 3:18 PM CLINICAL HISTORY: R93.89-Abnormal findings on diagnostic imaging ofother specified body bgxtrmhgrq-OBV-36-CM R91.8-Other nonspecific abnormal finding of lung srvig-KSY-33-CM COMPARISON: None. PROCEDURE COMMENTS: 12 mCi 18F-fluorodeoxyglucose [...] mediastinal lymphadenopathy is also present with a employee relations representative upper paratracheal node measuring 2.7 x [...] METER POC (06/24/2025 2:08 PM EDT) [facility] Glucose Meter POC 98 70 - 100 mg/dL 06/24/2025 2:13 PM EDT [facility] Sample Type Capillary 06/24/2025 2:13 PM EDT [facility] Patient Status Non-Critical Patient 06/24/2025 2:13 PM EDT [facility] Blood BLOOD SPECIMEN / Unknown 06/24/2025 2:08 PM EDT 06/24/2025 2:13 PM EDT Haylie Fenton APRN POINT OF CARE TEST ORDERABLES Final Result [facility] [address] [place] [address] * MM MOBILE MAMMO DIGITAL SCREEN W CAD FERNANDA (08/03/2016 2:55 PM EST) Anatomical Region Laterality Modality Breast Mammography 08/06/2016 11:5 2 AM EST Impressions 08/10/2016 4:24 PM EST : Negative (QHM-Kzzswkol-0) ~ RECOMMENDATION: Routine screening mammogram in 1 [...] Most Recently Relevant to Health Maintenance Insurance [facility] [facility] [place] [address] Advance Directives For more information, please contact: [phone] * Full Code (Latest Code Status on File) Date Activated Date Inactivated Comments 11/08/2017 7:55 PM 11/09/2017 5:43 PM Care Teams Ocean Fishing Guide Relationship Specialty Start Date End Date Rodo Lowe Consulting Physician Orthopaedic Surgery 12/27/15 Rodo Reyes MD Consulting Physician Orthopaedic Surgery 10/25/16
--- OUTSIDE RECORDS SUMMARY | 2025-09-23 12:15 | XMS_ITS | Encounter Summary ---
Author Organization [place] [address] Care Team Providers Care Pellet Press Operator Name Role Phone Katty Escobar MD Primary Care Provi brigitte Unavailable Rodo Lowe Unavailable Rodo Reyes MD Unavailable [phone] Reason for Visit * Reason Onset Date Comments Medication Refill 12/08/2017 Encounter Details Date Type Department Care Team (Late Contact Info) Description 12/08/2017 Refill [facility] [address] [place] [address] Katty Escobar MD Medication Refill Social [...] on filedocumented in this encounter Care Teams Pellet Press Operator Relationship Specialty Start Date End Date Katty Escobar MD PCP - General Family Medicine 11/30/14 09/21/23 Rodo Lowe Consulting Physician Orthopaedic Surgery 12/27/15 Rodo Reyes MD Consulting Physician Orthopaedic Surgery 10/25/16 documented as of this encounter
[2025-09-23] MEDS: DEXAMETHASONE 4MG TABLET 12 MG (12:17)
[2025-09-23 12:55] VITALS: BP 125/90; PULSE 91; RESP 18; O2SAT 98
[2025-09-23 14:05] VITALS: BP 131/87; PULSE 95; RESP 18; O2SAT 98
== END 2025-09-23 23:59 | disposition home or self-care (01) ==
PROVIDERS: PCP Nurse Practitioner; Visit Provider Internal Medicine Medical Oncology
DX: C34.90 Malignant neoplasm of unspecified part of unspecified bronchus or lung (principal); Z51.11 Encounter for antineoplastic chemotherapy
CPT/HCPCS: 96413; J7040; J8540; J9181